=== PATIENT | male | born 1980 | race Caucasian/White ===

== ENCOUNTER 2021-10-29 19:01 | Emergency (ER) | payer OTHER, SELFPAY ==
[2021-10-29 19:03] VITALS: BP 181/85; PULSE 101; RESP 16; TEMP 36.8; O2SAT 98
[2021-10-29] MEDS: DACRIOSE EYE IRRIGATION 118 ML BOTTLE (19:20)
--- NOTE | 2021-10-29 19:21 | ED.EYEPROB ---
HPI - Eye Problem General Chief complaint: Eye Problems Stated complaint: eye injury Time Seen by Provider: 10/29/21 19:09 Source: patient History of Present Illness HPI Narrative: Patient was unscrewing a bolt when it flew out and struck him in his left eye he put an eye patch in the ER for evaluation. He does report a friend looked at it initially thought something was in the. Patient reports he feels some things in the any see a spot in his left visual field. Reports pain to his left feels like there is something in there. Patient reports prior history of Lasix denies contact lens use Related Data Allergies Allergy/AdvReac Type Severity Reaction Status Date / Time No Known Allergies Allergy Unknown Verified 10/29/21 19:02 Review of Systems Review of Systems: CONSTITUTIONAL: Denies fever, chills, or sweats. EYES: Denies visual changes, redness, or discharge. ENT: Denies rhinorrhea, congestion, sore throat, or otalgia. CARDIOVASCULAR: Denies chest pain, palpitations, or edema. RESPIRATORY: Denies cough or dyspnea. GASTROINTESTINAL: Denies abdominal pain, nausea, vomiting, or diarrhea. GENITOURINARY: Denies dysuria or hematuria. SKIN: Denies rash or itching. MUSCULOSKELETAL: Denies back pain, joint pain, or myalgia. NEUROLOGIC: Denies headache, numbness, dizziness, or weakness. PSYCHIATRIC: Denies anxiety or depression. All systems reviewed & are unremarkable except as noted in HPI and below PMFSH Family History Family History Mother Patient's mother is in good health Father Patient's father is in good health Sibling Patient's sister is in good health Social History Social History Smoking status: Former smoker Alcohol intake: current Exam Narrative: GENERAL: Well-appearing, well-nourished, and in no acute distress. HEAD: Normocephalic, atraumatic. EYES: PERRLA and EOMI. no hyphema or hypopyon there is 2 large areas fluorescein uptake in the superior aspect of his cornea as well as the lateral inferior aspect there is no Hanover sign. Small abrasion noted on the medial aspect of the upper lid and lower eyelids of the L eye ENT: Nares clear, no rhinorrhea or epistaxis. Mucous membranes moist. NECK: Supple. No masses. No JVD EXTREMITIES: Normal range of motion. No edema. SKIN: Warm, dry, no rash. NEURO: No focal deficits. Alert and oriented x3. PSYCH: Normal mood and affect. Course Vital Signs Vital signs: Vital Signs Temperature 36.8 C 10/29/21 19:03 Pulse Rate 101 H 10/29/21 19:03 Respiratory Rate 16 10/29/21 19:03 Blood Pressure 181/85 H 10/29/21 19:03 Pulse Oximetry 98 10/29/21 19:03 Temperature 36.8 C 10/29/21 19:03 Pulse Rate 101 H 10/29/21 20:32 Respiratory Rate 18 10/29/21 20:32 Blood Pressure 188/100 H 10/29/21 20:32 Pulse Oximetry 98 10/29/21 20:32 MDM - Eye Problem MDM Narrative Medical decision making narrative: H&P as above, vss, pt looks clinically well, exam with multiple corneal abrasions, labs/img considered, symptomatic relief available as needed, on reevaluation pt continues to looks clinically well. Suspect corneal abrasion, dns, ulcer, open globe, retinal detachment. however given is blurry vision he was transferred to [facility] ER for ophthalmology evaluation. Case discussed Dr. Franklin ophthomology as [facility]. Discharge Plan Discharge Clinical Impression: Blurred vision Corneal abrasion Qualifiers: Encounter type: initial encounter Laterality: left Qualified Code(s): S05.02XA - Injury of conjunctiva and corneal abrasion without foreign body, left eye, initial encounter Patient Disposition: Acute Care Hospital Condition: Improved Additional Instructions: Please return if your symptoms worsen or fail to improve. If you develop a fever, can not eat/drink anything or if you have any other concerns. Please follow-up with an eye doctor next
[2021-10-29 20:32] VITALS: BP 188/100; PULSE 101; RESP 18; O2SAT 98
--- NOTE | 2021-10-29 20:32 | PC.NURSE ---
Pt transferred to [facility] ER for opthamology. Refused ambulance transport and will go by personal vehicle with .
[2021-10-29] MEDS: KETOROLAC 30 MG/ML VIAL (*BKC) IM (20:39)
[2021-10-29] MEDS: ACETAMINOPHEN 500 MG TABLET 1000 MG PO (20:39)
== END 2021-10-29 20:43 | disposition short-term general hospital (02) ==
PROVIDERS: Emergency Provider Emergency Medicine; PCP Physician Assistant
DX: S05.02XA Injury of conjunctiva and corneal abrasion without foreign body, left eye, initial encounter (principal); Z87.891 Personal history of nicotine dependence; W22.8XXA Striking against or struck by other objects, initial encounter
CPT/HCPCS: 96372; 99283; A9270; J1885

== ENCOUNTER 2024-08-17 13:06 | Outpatient (CLI) | payer OTHER, SELFPAY ==
--- NOTE | ~2024-08-17 | CT_ITS ---
CT of the Abdomen and Pelvis: Indication: Hematuria Technique: 2.5 mm axial scans were obtained through the abdomen and pelvis prior to and following in travenous administration of 130 cc of Omnipaque 350. Dose reduction technique was used on this scan b y utilizing automated exposure control and iterative reconstruction technique. The dose-length produc t (DLP) was 1769.40 mGy-cm. Findings: Scans through the lung bases Bibasilar scarring or postoperative change.. The liver, spleen, pancreas, gallbladder, and adrenal glands are within normal limits. No evidence o f aortic aneurysm. No lymphadenopathy. 5 mm stone present in the proximal left ureter, without hydronephrosis. Additional punctate nonobstru cting left renal stone. No right renal or right ureteral stone. No right hydronephrosis. No bowel obstruction or bowel wall thickening. There is no evidence to suggest acute appendicitis. Images through the pelvis were performed. Urinary bladder unremarkable. No pelvic mass seen. No ascit es. Impression: 5 mm proximal left ureteral stone, without hydronephrosis. Additional punctate nonobstructing left renal stone. Reviewed, dictated and finalized at location . Impression: 5 mm proximal left ureteral stone, without hydronephrosis. Additional punctate nonobstructing left renal stone.
[2024-08-17 13:37] LABS: Estimated Glomerular Filt Rate > 60
== END 2024-08-17 13:07 | disposition home or self-care (01) ==
PROVIDERS: PCP Physician Assistant; Visit Provider Physician Assistant
DX: N20.0 Calculus of kidney (principal); R31.0 Gross hematuria
CPT/HCPCS: 74178; Q9967

== ENCOUNTER 2024-10-16 11:21 | Outpatient (CLI) | payer OTHER, SELFPAY ==
--- OUTSIDE RECORDS SUMMARY | 2024-10-16 11:27 | XMS_ITS | Clinical Summary ---
Author Organization [facility] Address [address] [place] [address] Care Team Providers Care Tariff Publishing Agent Name Role Phone Neida Vyas Primary Care Pr ovider Source Comments [facility],non-owned Affiliates and Associated Physician Practices is amultiple site organization consisting of ambulatory clinics and hospital sitesin [place], [place], [place] and [place]. This disclosure is being madepursuant to the Care Everywhere program and may not contain all information available regarding this patient. Last updated 18.[facility] Easy Pairings Allergies No known active allergies Medications * Be aware that medications may not be up to date on this document. Alwaysverify current medications with the patient. losartan (COZAAR) 50 MG tablet losartan 50 mg tablet TAKE 1 TABLET BY MOUTH EVERY DAY Active albuterol HFA (PROVENTIL; VENTOLIN; PROAIR) 108 (90 Base) MCG/ACT inhaler albuterol sulfate HFA 90 mcg/actuation aerosol inhaler Active chorionic gonadotropin (PREGNYL) injection Pregnyl 10,000 unit intramuscular solution Active LORazepam (ATIVAN) 1 MG tablet lorazepam 1 mg tablet TAKE 0.5 (ONE-HALF) TABLET BY MOUTH TWICE A DAY NEEDED Active meclizine (ANTIVERT) 25 MG tablet meclizine 25 mg tablet Active methIMAzole (TAPAZOLE) 5 MG tablet methimazole 5 mg tablet TAKE 1 TABLET BY MOUTH TWICE A DAY Active metoprolol succinate XL 24hr (TOPROL XL) 25 MG tablet metoprolol succinate ER 25 mg tablet,extended release 24 hr TAKE 1 TABLET BY MOUTH EVERY DAY Active omeprazole (PRILOSEC) 40 MG capsule omeprazole 40 mg capsule,delayed release TAKE ONE CAPSULE BY MOUTH ONCE DAILY IN THE MORNING Active valACYclovir (VALTREX) 500 MG tablet valacyclovir 500 mg tablet TAKE 1 TABLET BY MOUTH EVERY DAY Active Active Problems Problem Noted Date Diagnosed Date Hyperthyroidism 09/13/2021 Long-term current use of testosterone replacemen t therapy 07/11/2021 Benign essential hypertension 07/10/2021 Gastroesophageal reflux disease 07/10/2021 Ulcerative colitis 12/19/2017 Overview (11/07/2021): IBD History: Diagnosis: Ulcerative colitis Year of Diagnosis: 2013 Year Symptoms Began: 2013 Phenotype: n/a Distribution: medrano-colon Previously Failed Treatments: 5-ASA, steroid-dependent, sulfasalazine Current Treatment: tofacitinib (05/15/18-present) Complications: ANCA positive vasculitis Surgeries (Date, type): None Endoscopies (Date, findings, path): Colonoscopy 05/15/18 - Calderon 3 colitis through splenic flexure, Calderon 1 colitis right colon, Calderon 0 in rectum. Imaging: None pertinent Extraintestinal manifestations: None Perianal disease: None Last Assessment & Plan: Appears to be doing well on tofacitinib with significant improvement in symptoms. -Will plan for flex sig to assess disease response to current therapy -Continue tofacitinib at present dose -Will verify lipid panel results Added automatically from request for surgery [id number] Pain in joint of right shoulder 07/01/2015 Granulomatosis with polyangiitis 12/17/2014 Family History Medical History Relation Name Comments Glaucoma Neg Hx Macular Degeneration Neg Hx Social History Tobacco Use Types Packs/Day Years Used Date Smoking Tobacco: Never Smokeless Tobacco: Never Alcohol Use Standard Drinks/Week Comments Yes 0 (1 standard drink = 0.6 oz pur e alcohol) Occasional, <1/wk Sex and Gender Information Value Date Recorded Sex Assigned at Not on file Legal Sex Male 12:24 PM [employer] Gender Identity Not on file Sexual Orientation Not on file Last Filed Vital Signs Vital Sign Reading Time Taken Comments Blood Pressure 148/99 10/29/2021 11:50 PM CDT Pulse 94 10/29/2021 11:50 PM CDT Temperature 36.7 C (98 F) 10/29/2021 11:50 PM CDT Respiratory Rate 16 10/29/2021 11:50 PM CDT Oxygen Saturation 100% 10/29/2021 11:50 PM CDT Inhaled Oxygen Concentration - - Weight 86.2 kg (190 lb) 10/29/2021 9:27 PM CDT Height 172.7 cm (5' 8 ) 10/29/2021 9:27 PM CDT Body Mass Index 28.89 10/29/2021 9:27 PM CDT Plan of Treatment Health Maintenance Due Date Last Done Comments LIPID TESTING 1980 HIV SCREENING 1995 HEPATITIS C SCREENING 03/12/1998 DTAP/TDAP/TD VACCINES (1 - Tdap) 1999 HEPATITIS B VACCINE (1 of 3 - 19+ 3-dose series) 1999 SCREENING FOR DIABETES 11/13/2021 COVID-19 VACCINE (1 - 2023-2 5 season) 2024 DEPRESSION SCREENING 06/10/2024 INFLUENZA VACCINE (Season Ended) 2025 04/08/2017, 05/29/2016 ZOSTER VACCINE (1 of 2) 2030 HIB VACCINE Aged Out No longer eligi ble based on patient's age to complete this topic HPV VACCINE Aged Out No longer eligi ble based on patient's age to complete this topic MENINGOCOCCAL (Group B) VACCINE SHARED DECISION-MAKING Aged Out No longer eligible based on patient's age to complete this topic MENINGOCOCCAL GROUPS A/C/Y/W VACCINE Aged Out No longer eligible b ased on patient's age to complete this topic PNEUMOCOCCAL VACCINE Aged Out No long er eligible based on patient's age to complete this topic Care Teams Tariff Publishing Agent Relationship Specialty Start Date End Date Neida Vyas PA [address] [place] [address] PCP - General Physician Control Systems Designer 10/29/21
--- OUTSIDE RECORDS SUMMARY | 2024-10-16 11:27 | XMS_ITS | Data Portability ---
Author Organization [place] - [facility] [employer], Main Office Address [address] [place] [address] Assessment No assessment recorded. Plan of Treatment Reminders Order Date Submit Date Provider Last Modified By Organization Details Last Modified Time Details Appointments None recorded. Lab lipid panel, serum [address] - Outpatient Lab, [address] [place], [address], 3 12:10:19 CBC w/ auto diff 2022 023 [facility] - Outpatient Lab, [address] [place], [address], 3 12:14:21 CMP, serum or plasma [address] - Outpatient Lab, [address] [place], [address], 3 12:10:10 T4, free, serum 2022 023 [facility] ([facility] Sched[facility]), [address] [place], [address], 3 12:38:20 TSH, serum or plasma 2022 023 [facility] ([facility] Sched[facility]), [address] [place], [address], 3 12:52:38 T4, free, serum 2022 023 [facility] ([facility] Sched[facility]), [address] [place], [address], 3 16:12:09 TSH, serum or plasma 2022 023 [facility] ([facility] Sched[facility]), [address] [place], [address], 3 16:39:18 T3, free, serum or plasma 2022 023 [facility] ([facility] Sched[facility]), [address] [place], [address], 3 16:12:25 tsi (thyroid-st imulating immunoglobu izaiah), serum 2022 023 [facility] ([facility] Sched[facility]), [address] [place], [address], 3 07:12:16 CMP, serum or plasma 2022 023 [facility] ([facility] Sched[facility]), [address] [place], [address], 3 16:02:10 thyroid peroxidase (tpo) Ab, serum 2022 023 [facility] ([facility] Scheduling), [address] [place], [address], 3 10:12:49 TSH + free T4, serum 2022 023 [email or web address] [facility] - Outpatient Lab, [address] [place], [address], 3 08:39:06 T3, free, serum or plasma 2022 023 [email or web address] [facility] - Outpatient Lab, [address] [place], [address], 3 08:43:08 tsi (thyroid-st imulating immunoglobu izaiah), serum [address] Outpatient Lab, [address] [place], [address], 3 12:19:04 thyroid peroxidase (tpo) Ab, serum [address] Outpatient Lab, [address] [place], [address], 3 12:19:12 thyroglobul in Ab, serum 2022 023 [facility] Outpatient Lab, [address] [place], [address], 3 10:47:01 urinalysis, complete [address] Outpatient Lab, [address] [place], [address], 3 17:31:08 CMP, serum or plasma [address] Outpatient Lab, [address] [place], [address], 3 17:31:22 lipid panel, serum [address] Outpatient Lab, [address] [place], [address], 3 17:31:30 CBC w/ auto diff [address] Outpatient Lab, [address] [place], [address], 3 17:30:56 PSA, serum or plasma [address] Outpatient Lab, [address] [place], [address], 3 17:31:56 HbA1c (hemoglobin A1c), blood 2022 023 [email or web address] [facility] - Outpatient Lab, [address] [place], [address], 3 17:31:41 Referral None recorded. Procedures None recorded. Surgeries None recorded. Imaging CT, abdomen + pelvis, w/ contrast 2022 023 [facility] (Imaging), [address] [place], [address], 3 10:12:43 Medication Orders methimazole 5 mg tablet 2022 023 [facility] [facility], [address] [place], [address], 3 09:36:08 methimazole 10 mg tablet 2022 023 [place] [address] [facility] [address] [facility], [address] [place], [address], 3 09:17:54 loratadine 10 mg tablet 2022 023 [facility] [address] [facility], [address] [place], [address], 3 11:04:02 Patient TargetsNo targets recorded. Patient InstructionsNo instructions recorded. Reason for Referral None Reported. Results Created Date Observation Date Name Description Value Unit Range Abnormal Flag Note LastModifiedBy Organization Detail LastModifiedTime 01/15/2001/14/2023 COMPR EHENS INEZ METAB OLIC PANEL sodium 139 mmol/ L 137-14 5 Not Available [facility] (Lab) [address] [place], [address], 01/14/2023 16:02:10 01/15/20 23 01/14/2023 COMPR EHENS INEZ METAB OLIC PANEL potassium 3.8 mmol/ L 3.5-5. 1 Not Available [facility] (Lab) [address] [place], [address], 01/14/2023 16:02:10 01/15/20 23 01/14/2023 COMPR EHENS INEZ METAB OLIC PANEL chloride 106 mmol/ L 98-107 Not Available [facility] (Lab) [address] [place], [address], 01/14/2023 16:02:10 01/15/20 23 01/14/2023 COMPR EHENS INEZ METAB OLIC PANEL carbon dioxide 25 mmol/ L 22-30 Not Available [facility] (Lab) [address] [place], [address], 01/14/2023 16:02:10 01/15/20 23 01/14/2023 COMPR EHENS INEZ METAB OLIC PANEL anion gap 11.8 mmol/ L 14-22 low Not Available [facility] (Lab) [address] [place], [address], 01/14/2023 16:02:10 01/15/20 23 01/14/2023 COMPR EHENS INEZ METAB OLIC PANEL glucose 101 mg/dL 70-99 high Not Available [facility] (Lab) [address] [place], [address], 01/14/2023 16:02:10 01/15/20 23 01/14/2023 COMPR EHENS INEZ METAB OLIC PANEL BUN 15 mg/dL 8-19 Not Available [facility] (Lab) [address] [place], [address], 01/14/2023 16:02:10 01/15/20 23 01/14/2023 COMPR EHENS INEZ METAB OLIC PANEL creatinine 0.78 mg/dL 0.66-1 .25 Not Available [facility] (Lab) [address] [place], [address], 01/14/2023 16:02:10 01/15/20 23 01/14/2023 COMPR EHENS INEZ METAB OLIC PANEL GFR >60 Refer ence Range : Matador ge GFR Healt hy Adult : >60 mL/mi n/1.7 3 m2 Chron ic Kidne y Disea se: 15-60 mL/mi n/1.7 3 m2 Kidne y Failu re: <15/m L/min /1.73 m2 www.n iddk. nih.g ov The MDRD study equat ion has not been valid ated in child handy <18 years of age; pregn ant women ; the elder ly >85 years of age; or in some racia l or ethni c subgr oups, such as Hispa nics. Outsi de the valid ated jayy eters , estim ated GFR is less accur ate, requi ring clini lucila judgm ent on a case- by-ca se basis . Clini lucila inter preta tion for other races and ages must be made by the clini marlo. The MDRD study equat ion has not been valid ated for the evalu ation of serum creat inine relat ed to nutri bev l statu s or medic ation usage . For perso ns <18 years of age, a pedia tric GFR calcu lator is avail able on the [employer] websi te: https ://jl suggs.simba lindsay.des roberts/pr ofess ional s/kdo qi/gf r_cal culat or Not Available [facility] (Lab) [address] [place], [address], 01/14/2023 16:02:10 01/15/20 23 01/14/2023 COMPR EHENS INEZ METAB OLIC PANEL alkaline phosphatase 143 U/L 38-126 high Not Available [facility] (Lab) [address] [place], [address], 01/14/2023 16:02:10 01/15/20 23 01/14/2023 COMPR EHENS INEZ METAB OLIC PANEL alanine aminotransfe rase 32 U/L 0-50 Not Available [facility] (Lab) [address] [place], [address], 01/14/2023 16:02:10 01/15/20 23 01/14/2023 COMPR EHENS INEZ METAB OLIC PANEL aspartate aminotransfe rase 32 U/L 15-46 Not Available [facility] (Lab) [address] [place], [address], 01/14/2023 16:02:10 01/15/20 23 01/14/2023 COMPR EHENS INEZ METAB OLIC PANEL bilirubin, total 0.30 mg/dL 0.20-1 .30 Not Available [facility] (Lab) [address] [place], [address], 01/14/2023 16:02:10 01/15/20 23 01/14/2023 COMPR EHENS INEZ METAB OLIC PANEL calcium 9.2 mg/dL 8.4-10 .2 Not Available [facility] (Lab) [address] [place], [address], 01/14/2023 16:02:10 01/15/20 23 01/14/2023 COMPR EHENS INEZ METAB OLIC PANEL total protein 7.6 g/dL 6.3-8. 2 Not Available [facility] (Lab) [address] [place], [address], 01/14/2023 16:02:10 01/15/20 23 01/14/2023 COMPR EHENS INEZ METAB OLIC PANEL albumin 4.5 g/dL 3.4-5. 0 Not Available [facility] (Lab) [address] [place], [address], 01/14/2023 16:02:10 01/15/20 23 01/14/2023 COMPR EHENS INEZ METAB OLIC PANEL globulin 3.1 g/dL 2.6-4. 2 Not Available [facility] (Lab) [address] [place], [address], 01/14/2023 16:02:10 01/15/20 01/14/2023 COMPR EHENS INEZ METAB OLIC PANEL A/G ratio 1.5 ratio 1.0-2. 0 Not Available [facility] (Lab) [address] [place], [address], 01/14/2023 16:02:10 01/15/20 23 01/14/2023 T4 FREE free T4 1.27 NG/dL 0.78-2 .19 Not Available [facility] (Lab) [address] [place], [address], 01/14/2023 16:12:09 01/15/20 23 01/14/2023 T3 FREE free T3 6.2 pg/mL 2.77-5 .27 high Not Available [facility] (Lab) [address] [place], [address], 01/14/2023 16:12:25 01/15/20 23 01/14/2023 TSH thyroid-stim ulating hormone <0.015 uIU/m L 0.465- 4.680 low Not Available [facility] (Lab) [address] [place], [address], 01/14/2023 16:39:18 01/15/20 23 01/15/2023 THYRO ID PEROX IDASE (TPO) AB thyroid peroxidase (tpo) Ab 503 IU/mL 0-34 high Perfo rmed at: [facility] [address] [place] [id number] Lab Direc tor: Scott baker PhD, Phone : [phone] Not Available [facility] (Lab) [address] [place], [address], 01/15/2023 10:12:49 01/15/20 23 01/17/2023 THYRO ID STIM IMMUN OGLOB ULIN thyroid stim immunoglobul in 3.86 IU/L 0.00-0 .55 high Perfo rmed at: [facility] - [facility] Marianna montanez [address] [place] [address] [place] [address] Lab Direc tor: Daniella benítez MD, Phone : [phone] Not Available [facility] (Lab) [address] [place], [address], 01/17/2023 07:12:16 02/22/20 23 02/21/2023 COMPR EHENS INEZ METAB OLIC PANEL sodium 139 mmol/ L 137-14 5 Not Available [facility] (Lab) [address] [place], [address], 02/21/2023 10:58:16 02/22/20 23 02/21/2023 COMPR EHENS INEZ METAB OLIC PANEL potassium 3.9 mmol/ L 3.5-5. 1 Not Available [facility] (Lab) [address] [place], [address], 02/21/2023 10:58:16 02/22/20 23 02/21/2023 COMPR EHENS INEZ METAB OLIC PANEL chloride 105 mmol/ L 98-107 Not Available [facility] (Lab) [address] [place], [address], 02/21/2023 10:58:16 02/22/20 23 02/21/2023 COMPR EHENS INEZ METAB OLIC PANEL carbon dioxide 24 mmol/ L 22-30 Not Available [facility] (Lab) [address] [place], [address], 02/21/2023 10:58:16 02/22/20 23 02/21/2023 COMPR EHENS INEZ METAB OLIC PANEL anion gap 13.9 mmol/ L 14-22 low Not Available [facility] (Lab) [address] [place], [address], 02/21/2023 10:58:16 02/22/20 23 02/21/2023 COMPR EHENS INEZ METAB OLIC PANEL glucose 108 mg/dL 70-99 high Not Available [facility] (Lab) [address] [place], [address], 02/21/2023 10:58:16 02/22/20 23 02/21/2023 COMPR EHENS INEZ METAB OLIC PANEL BUN 18 mg/dL 8-19 Not Available [facility] (Lab) [address] [place], [address], 02/21/2023 10:58:16 02/22/20 23 02/21/2023 COMPR EHENS INEZ METAB OLIC PANEL creatinine 0.96 mg/dL 0.66-1 .25 Not Available [facility] (Lab) [address] [place], [address], 02/21/2023 10:58:16 02/22/20 23 02/21/2023 COMPR EHENS INEZ METAB OLIC PANEL GFR >60 Refer ence Range : Matador ge GFR Healt hy Adult : >60 mL/mi n/1.7 3 m2 Chron ic Kidne y Disea se: 15-60 mL/mi n/1.7 3 m2 Kidne y Failu re: <15/m L/min /1.73 m2 www.n iddk. nih.g ov The MDRD study equat ion has not been valid ated in child handy <18 years of age; pregn ant women ; the elder ly >85 years of age; or in some racia l or ethni c subgr oups, such as [facility] nics. Outsi de the valid ated jayy eters , estim ated GFR is less accur ate, requi ring clini lucila judgm ent on a case- by-ca se basis . Clini lucila inter preta tion for other races and ages must be made by the clini marlo. The MDRD study equat ion has not been valid ated for the evalu ation of serum creat inine relat ed to nutri bev l statu s or medic ation usage . For perso ns <18 years of age, a pedia tric GFR calcu lator is avail able on the F websi te: https ://jl w.simba ogdeny.o rg/pr ofess ional s/kdo qi/gf r_cal culat or Not Available [facility] (Lab) [address] [facility] [place], [address], 02/21/2023 10:58:16 02/22/20 23 02/21/2023 COMPR EHENS INEZ METAB OLIC PANEL alkaline phosphatase 126 U/L 38-126 Not Available [facility] (Lab) [address] [place], [address], 02/21/2023 10:58:16 02/22/20 23 02/21/2023 COMPR EHENS INEZ METAB OLIC PANEL alanine aminotransfe rase 27 U/L 0-50 Not Available [facility] (Lab) [address] [place], [address], 02/21/2023 10:58:16 02/22/20 23 02/21/2023 COMPR EHENS INEZ METAB OLIC PANEL aspartate aminotransfe rase 30 U/L 15-46 Not Available [facility] (Lab) [address] [place], [address], 02/21/2023 10:58:16 02/22/2002/21/2023 COMPR EHENS INEZ METAB OLIC PANEL bilirubin, total 0.80 mg/dL 0.20-1 .30 Not Available [facility] (Lab) [address] [place], [address], 02/21/2023 10:58:16 02/22/2002/21/2023 COMPR EHENS INEZ METAB OLIC PANEL calcium 9.4 mg/dL 8.4-10 .2 Not Available [facility] (Lab) [address] [place], [address], 02/21/2023 10:58:16 02/22/20 23 02/21/2023 COMPR EHENS INEZ METAB OLIC PANEL total protein 8.2 g/dL 6.3-8. 2 Not Available [facility] (Lab) [address] [place], [address], 02/21/2023 10:58:16 02/22/20 23 02/21/2023 COMPR EHENS INEZ METAB OLIC PANEL albumin 4.8 g/dL 3.4-5. 0 Not Available [facility] (Lab) [address] [place], [address], 02/21/2023 10:58:16 02/22/20 23 02/21/2023 COMPR EHENS INEZ METAB OLIC PANEL globulin 3.4 g/dL 2.6-4. 2 Not Available [facility] (Lab) [address] [facility] [place], [address], 02/21/2023 10:58:16 02/22/20 23 02/21/2023 COMPR EHENS INEZ METAB OLIC PANEL A/G ratio 1.4 ratio 1.0-2. 0 Not Available [facility] (Lab) [address] [place], [address], 02/21/2023 10:58:16 02/22/20 23 02/21/2023 T4 FREE free T4 0.60 NG/dL 0.78-2 .19 low Not Available [facility] (Lab) [address] [place], [address], 02/21/2023 11:14:32 02/22/2002/21/2023 T3 FREE free T3 3.0 pg/mL 2.77-5 .27 Not Available [facility] (Lab) [address] [facility] [place], [address], 02/21/2023 11:14:39 02/22/2002/21/2023 TSH thyroid-stim ulating hormone 1.360 uIU/m L 0.465- 4.680 Not Available [facility] (Lab) [address] [place], [address], 02/21/2023 11:28:30 02/22/20 23 02/22/2023 THYRO ID PEROX IDASE (TPO) AB thyroid peroxidase (tpo) Ab 495 IU/mL 0-34 high Perfo rmed at: - [facility] [address] [place] [address] Lab Direc tor: Scott baker PhD, Phone : [phone] Not Available [facility] (Lab) [address] [place], [address], 02/22/2023 09:13:46 02/22/20 23 02/24/2023 THYRO ID STIM IMMUN OGLOB ULIN thyroid stim immunoglobul in 4.09 IU/L 0.00-0 .55 high Perfo rmed at: - [facility] [address] [place] [address] Lab Direc tor: Daniella benítez MD, Phone : [phone] Not Available [facility] (Lab) [address] [place], [address], 02/24/2023 11:08:19 03/13/20 23 03/13/2023 T4 FREE free T4 0.62 NG/dL 0.78-2 .19 low Not Available [facility] (Lab) [address] [place], [address], 03/13/2023 12:38:20 03/13/20 23 03/13/2023 TSH thyroid-stim ulating hormone 4.060 uIU/m L 0.465- 4.680 Not Available [facility] (Lab) [address] [place], [address], 03/13/2023 12:52:37 10/11/1909/11/2022 CT, abdom en + pelvi s, w/ contr ast No observ ation record ed. [email or web address] [facility] [address] [place], [address], 10/10/2022 14:47:29 10/12/19 23 09/11/2022 US, scrot um No observ ation record ed. [email or web address] [facility] [address] [place], [address], 10/11/2022 15:45:23 10/17/19 23 10/16/2022 CT, abdom en + pelvi s, w/ contr ast No observ ation record ed. [email or web address] [facility] [address] [place], [address], 10/17/2022 14:15:07 Result Notes None recorded. Problems Name Problem SNOMED Code Status [place] Date Resolution Date Notes Provider Name and Address Organization Details Recorded Time Benign essential hypertensi on 4348098 Active 2021 Not Available [facility] 3 15:16:57 Abnormal testostero ne 926606377 Active 2021 Not Available [facility] 3 15:16:57 Acute sinusitis 54789286 Active 2021 Not Available [facility] 3 15:16:57 Diabetes mellitus screening Active 2021 [facility] Available [facility] 3 15:16:57 Gastroesop hageal reflux disease 199285154 Active 2021 Not Available [facility] 3 15:16:57 Long-term drug therapy Active 2021 Not Available [facility] 3 15:16:57 Cholestero l screening Active 2021 Not Available [facility] 3 15:16:58 Thyroid function tests abnormal 789686956 Active 2021 Not Available [facility] 3 15:16:58 Hyperthyro idism 63389455 Active 2021 LUIS CARLOS Valera, [place] [employer] [facility] 3 11:26:53 Pain of left knee joint 3374523901569 07 Active 2021 Not Available [facility] 3 15:16:58 Gynecomast ia 0361074 Active 2021 Not Available [facility] 3 15:16:58 Long-term current use of testostero ne replacemen t therapy 4144250996770 1 Active 2021 Not Available [facility] 3 15:16:58 Upper respirator y infection 26953970 Active 2021 Not Available [facility] 3 15:16:58 Kidney stone 86324551 Active 2022 DICKSON Wu [address], [place], [address] , [email or web address] 3 11:01:09 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 Procedures Surgical History Date Name Laterality Status Provider Name and Address Organization Details Recorded Time 01/09/20 22 Knee completed LUIS CARLOS Valera [employer] [facility] 10/09/2022 10:33:14 05/15/20 18 Colonoscopy completed Not Available [facility] 08/09/19 15:14:17 Orthopedic Surgery completed Not Available [facility] 08/08/2022 15:14:17 Lung Surgery completed Not Available [facility] 08/08/2022 15:14:17 Orthopedic Surgery completed Not Available [facility] 08/08/2022 15:14:17 Lung Surgery completed Not Available [facility] 08/08/2022 15:14:17 Orthopedic Surgery completed Not Available [facility] 08/08/2022 15:14:17 Imaging Results Imaging Date Name Status LastModified by Organiz ation Details LastModified Time 09/11/2022 CT, abdomen + pelvis, w/ contrast completed [email or web address] [facility] [address] [place], [address], 10/10/2022 14:47:29 09/11/2022 US, scrotum completed [email or web address] [facility] [address] [place], [address], 10/11/2022 15:45:23 10/16/2022 CT, abdomen + pelvis, w/ contrast completed [email or web address] [facility] [address] [place], [address], 10/17/2022 14:15:07 Procedure Notes None recorded. Medical Equipment None Reported. Allergies No known drug allergies Medications Name Sig Start Date Stop Date Status Note LastModified by Organization Details LastModified Time losartan 50 mg tablet TAKE 1 TABLET BY MOUTH EVERY DAY active Not Available Not Available No t Available prednisone 10 mg tablet 09/12 completed Not Available Not Available Not Available clindamycin HCl 300 mg capsule 09/12 completed Not Available Not Available Not Available azithromyci n 250 mg tablet TAKE 2 TABLETS (500 MG) BY ORAL ROUTE ONCE DAILY FOR 1 DAY THEN 1 TABLET (250 MG) BY ORAL ROUTE ONCE DAILY FOR 4 DAYS 07/10 completed Not Available Not Available Not Available prednisone 20 mg tablet take 3 tabs po daily x 2 days, thentake 2 tabs po daily x 2 days, thentake 1 tab po daily x 2 days, thentake 1/2 tab po daily x 2 days. active Not Available Not Available No t Available Pregnyl 10,000 unit intramuscul ar solution 10/08 completed Not Available Not Available Not Available azathioprin e 50 mg tablet 09/12 completed Not Available Not Available Not Available valacyclovi r 500 mg tablet TAKE 1 TABLET BY MOUTH EVERY DAY active Not Available Not Available No t Available ciprofloxac in 500 mg tablet TAKE 1 TABLET BY MOUTH TWICE A DAY 09/12 completed Not Available Not Available Not Available omeprazole 40 mg capsule,del ayed release TAKE ONE CAPSULE BY MOUTH ONCE DAILY IN THE MORNING active Not Available Not Available No t Available tramadol 50 mg tablet TAKE 1 TO 2 TABLETS BY MOUTH EVERY 4 TO 6 HOURS NEEDED FOR PAIN 10/09 completed Not Available Not Available Not Available ondansetron 8 mg disintegrat ing tablet 10/08 completed Not Available Not Available Not Available ketorolac 10 mg tablet 10/09 completed Not Available Not Available Not Available amoxicillin 875 mg tablet TAKE 1 TABLET BY MOUTH EVERY 12 HOURS 09/12 completed Not Available Not Available Not Available tamsulosin 0.4 mg capsule TAKE 1 CAPSULE BY MOUTH EVERY DAY 09/12 completed Not Available Not Available Not Available meclizine 25 mg tablet TAKE 1 TABLET BY MOUTH THREE TIMES A DAY NEEDED active Not Available Not Available No t Available hydrocodone 7.5 mg-acetamin ophen 325 mg tablet 10/08 completed Not Available Not Available Not Available pantoprazol e 40 mg tablet,dimas yed release 09/12 completed Not Available Not Available Not Available prednisone 50 mg tablet Take 1 tablet every day by oral route for 5 days. active Not Available Not Available No t Available methimazole 5 mg tablet TAKE 2 TABLETS BY MOUTH TWICE A DAY active Not Available Not Available No t Available metoprolol succinate ER 25 mg tablet,exte nded release 24 hr TAKE 1 TABLET BY MOUTH EVERY DAY 2023 active Not Available Not Available Not Avai lable lorazepam 1 mg tablet TAKE HALF A TABLET BY MOUTH TWICE A DAY NEEDED active Not Available Not Available No t Available levofloxaci n 500 mg tablet TAKE 1 TABLET EVERY 24 HOURS BY ORAL ROUTE 09/13 completed Not Available Not Available Not Available methylpredn isolone 4 mg tablets in a dose pack TAKE 6 TABLETS ON DAY 1 DIRECTED ON PACKAGE AND DECREASE BY 1 TAB EACH DAY FOR A TOTAL OF 6 DAYS 10/08 completed Not Available Not Available Not Available albuterol sulfate HFA 90 mcg/actuati on aerosol inhaler Inhale 2 puffs every 4-6 hours by inhalatio n route as needed. 10/08 completed Not Available Not Available Not Available methimazole 10 mg tablet TAKE 2 TABLETS BY MOUTH TWICE A DAY 03/26 completed Not Available Not Available Not Available ondansetron 4 mg disintegrat ing tablet Place 1 tablet every 4-6 hours by transling ual route as needed. active Not Available Not Available No t Available loratadine 10 mg tablet Take 1 tablet every day by oral route. 2022 active Not Available Not Available Not Avai lable naproxen 500 mg tablet TAKE 1 TABLET BY ORAL ROUTE 2 TIMES PER DAY TAKE NEEDED FOR PAIN active Not Available Not Available No t Available amoxicillin 875 mg-potassiu m clavulanate 125 mg tablet TAKE 1 TABLET BY MOUTH EVERY 12 HOURS 10/08 completed Not Available Not Available Not Available tobramycin 0.3 %-dexametha sone 0.1 % eye drops,suspe nsion 07/10 completed Not Available Not Available Not Available Flovent HFA 110 mcg/actuati on aerosol inhaler INHALE 1 PUFF BY MOUTH TWICE A DAY 07/11 completed Not Available Not Available Not Available Xeljanz 10 mg tablet 09/12 completed Not Available Not Available Not Available Dulera 50 mcg-5 mcg/actuati on HFA aerosol inhaler Inhale 2 inhalatio ns twice a day by inhalatio n route. 07/11 completed Not Available Not Available Not Available Vitals Date Recorded Body mass index (BMI) Body height Oxygen saturation Oxygen saturation in Arterial blood by Pulse oximetry Heart rate Body temperature Body weight Systolic blood pressure Diastolic blood pressure Provider Name and Address Organization Details Last Updated DateTime 2 29.3 kg/m2 172.72 cm 98 % 98 % 73 /min 98 [degF] 93564.6 1 g 125 mm[Hg] 85 mm[Hg] Not Available [facility] 3 15:14:44 Date Recorded Body height Body temperature Body mass index (BMI) Body weight Respiratory rate Oxygen saturation Oxygen saturation in Arterial blood by Pulse oximetry Heart rate Systolic blood pressure Diastolic blood pressure Provider Name and Address Organization Details Last Updated DateTime 3 172.72 cm 97.6 [degF] 30 kg/m2 69919.7 g 16 /min 97 % 97 % 101 /min 130 mm[Hg] 82 mm[Hg] LUIS CARLOS Valera [place] - [facility] [place] [employer] 3 10:33:54 Date Recorded Body height Body mass index (BMI) Body weight Body temperature Respiratory rate Heart rate Systolic blood pressure Diastolic blood pressure Provider Name and Address Organization Details Last Updated DateTime 3 172.72 cm 30.5 kg/m2 07631.3 5 g 97.8 [degF] 12 /min 65 /min 159 mm[Hg] 94 mm[Hg] Tamela Olivas RN [facility] [employer] [facility] 3 14:10:06 Date Recorded Body height Body mass index (BMI) Body weight Body temperature Respiratory rate Heart rate Systolic blood pressure Diastolic blood pressure Provider Name and Address Organization Details Last Updated DateTime 3 172.72 cm 32 kg/m2 41786.8 3 g 97.8 [degF] 12 /min 60 /min 159 mm[Hg] 105 mm[Hg] Tamela Olivas RN [facility] [employer] [facility] 3 09:11:36 Date Recorded Body height Body mass index (BMI) Body weight Body temperature Heart rate Oxygen saturation Oxygen saturation in Arterial blood by Pulse oximetry Systolic blood pressure Diastolic blood pressure Provider Name and Address Organization Details Last Updated DateTime 3 172.72 cm 31.6 kg/m2 16265.2 1 g 97.4 [degF] 67 /min 98 % 98 % 142 mm[Hg] 90 mm[Hg] Digna Paul RN [facility] [employer] [facility] 3 09:19:01 Social History Question Answer Notes LastModified by Organization Details LastModified Time Tobacco Smoking Status Former Smoker <1-5 years since last cigarette Not Available [facility] 08/08/2022 15:13:48 What Is Your Level Of Alcohol Consumption? Moderate Beer [id number] Information not available 08/08/2022 What Is Your Level Of Caffeine Consumption? Heavy Coffee And Soda >32oz A Day MIGRATION.030 [id number] Information not available 08/08/2022 How Much Tobacco Do You Chew? None MIGRATION.030 [id number] Information not available 08/08/2022 In The 14 Days Before Symptom Onset, Have You Had Close Contact With A Laboratory-confi rmed COVID-19 While That Case Was Ill? No MIGRATION.030 [id number] Information not available 08/08/2022 In The 14 Days Before Symptom Onset, Have You Had Close Contact With A Person Who Is Under Investigation For COVID-19 While That Person Was Ill? No MIGRATION.0301 [id number] Information not available 08/08/2022 Are You Currently Employed? Yes [email or web address] Information not available 10/08/2022 What Type Of Diet Are You Following? REGULAR MIGRATION.0301 [id number] Information not available 08/08/2022 Which Illicit Or Recreational Drugs Have You Used? None MIGRATION.0301 [id number] Information not available 08/08/2022 Do You Or Have You Ever Used E-cigarettes Or Vape? 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 No MIGRATION.0301 905883 Information not available 08/08/2022 Do You Use Insect Repellent Routinely? No MIGRATION.0301 849114 Information not available 08/08/2022 What Was The Date Of Your Most Recent Tobacco Screening? 09/12/2020 MIGRATION.0301 467503 Information not available 08/08/2022 What Is Your Relationship Status? Single MIGRATION.0301 [id number] Information not available 08/08/2022 Do You Use Your Seat Belt Or Car Seat Routinely? Yes MIGRATION.0301 128731 Information not available 08/08/2022 Do You Have Smoke And Carbon Monoxide Detectors In Your Home? Yes MIGRATION.0301 153153 Information not available 08/08/2022 Do You Or Have You Ever Used Smokeless Tobacco? Former Smokeless Tobacco User MIGRATION.0301 039855 Information not available 08/08/2022 How Much Tobacco Do You Smoke? 1 PPD MIGRATION.0301 750376 Information not available 08/08/2022 Do You Use Any Illicit Or Recreational Drugs? No MIGRATION.0301 355836 Information not available 08/08/2022 Do You Use Sunscreen Routinely? Yes MIGRATION.0301 588016 Information not available 08/08/2022 Have You Recently Traveled Abroad? No MIGRATION.0301 387971 Information not available 08/08/2022 Do You Have Any Dietary Restrictions? No MIGRATION.0301 393384 Information not available 08/08/2022 Do You Or Have You Ever Used Any Other Forms Of Tobacco Or Nicotine? No MIGRATION.0301 905698 Information not available 08/08/2022 Sex: Unknown Functional Status Question Answer Note LastModified by Organizat ion Details LastModified Time What is your exercise level? Moderate [id number] Information not available 08/08/2022 Mental Status None recorded. Family History Relationship Description Onset Age of this Age Resolved Age Notes LastModified by Organization Details LastModified Time Father Malignant neoplastic disease MIGRATION.822 [id number] Not available 08/08/2022 15:14:17 Medical History Condition Response MRSA Y SKIN PROBLEMS Y DIABETES, TYPE N ALLERGIES/HAYFEVER N OTHER # 1 N PARATHYROID DISEASE N ENT N LUNG DISEASE/DISORDER Y SEASONAL ALLERGIES N HEARTBURN / REFLUX Y INSOMNIA N RADIATION / CHEMOTHERAPY N COPD N Other # 2 N HYPERTHYROIDISM Y BLOOD DISEASES N NEUROLOGICAL PROBLEMS N EAR OR HEARING PROBLEMS N HYPOTHYROIDISM N BOWEL PROBLEMS Y DEPRESSION (INCLUDING POST ) Y HAVE YOU BEEN HOSPITALIZED OR SEEN IN [facility] ER IN THE PAST YEAR ? N HEADACHES/MIGRAINES N SEIZURES/EPILEPSY N CHF N PACEMAKER N DIZZINESS N HEART DISEASE/HEART PROBLEMS N AIDS/HIV N FRACTURES N HYPERTENSION Y CARDIAC ARRHYTHMIA Y CANCER: SPECIFY N OBESITY N ANXIETY DISORDER Y BLOOD TRANSFUSION N ANESTHESIA COMPLICATIONS N GERD/NAUSEA Y ANEMIA/BLOOD DISORDER N CHRONIC EAR INFECTIONS N ANEURYSM N HISTORY WITH COMPLICATIONS WITH ANESTHES IA ? N Past Encounters Encounter ID Performer Location Encounter Start Date Encounter Closed Date Diagnosis/Indication Diagnosis SNOMED-CT Code Diagnosis ICD10 Code Diagnosis Note [id number] DICKSON Wu [facility] [place] [address] [place] [address] 09/12/2020 00:00:00 10/05/2020 20:07:09 [id number] Chacho Teague MD [facility] E[facility] [place] [address] [place] [address] 09/22/2020 00:00:00 09/22/2020 15:55:38 [id number] DICKSON Wu [facility] [place] [address] [place] [address] 07/11/2021 00:00:00 08/07/2021 20:27:29 [id number] [facility] [place] [address] [place] [address] 10/02/2021 00:00:00 10/02/2021 20:10:17 [id number] Trenton Gee MD [facility] Internal [facility] [place] [address] [place] [address] 11/09/2021 00:00:00 12/07/2021 21:59:40 [id number] [facility] [place] [address] [place] [address] 11/24/2021 00:00:00 11/24/2021 15:06:27 [id number] [facility] [place] [address] [place] [address] 01/09/2022 00:00:00 01/09/2022 12:03:44 [id number] DICKSON Wu [facility] Internal [facility] [place] [address] [place] [address] 10/09/2022 10:25:52 10/09/2022 11:08:07 Gastroesophageal reflux disease without esophagitis 148497828 K21.9 stable on PPI therapy. Benign ess ential hypertension 0588567 I10 stable on metoprolol and losartan. Kidney stone 62330277 N2 0.0 recent renal stone. screening cmp and UA Mesenteric lymphadenopathy 515468992 I88.0 hx of mesenteric lymphadeno cedric noted on ER scan. This requires f/u scan and lab Cholesterol screening 27 9384740 Z13.220 fasting lipids due. Diabetes m ellitus screening 412803473 Z13.1 screening diabetes due Hyperthyroidism 99570363 E05.90 Pt must f/u with endocrine. this is an ongoing issue. he's not been taking methimazol e in some months. due for TFTs and Thyroid abs. Screening for malignant neoplasm of prostate 641529962 Z12.5 PSA screening due. Seasonal a llergic rhinitis 344352246 J30.2 start loratidine 10mg daily for allergies. [id number] Chantale Savage MD [facility] [place] [address] [place] [address] 01/14/2023 14:01:43 01/14/2023 14:28:06 Hyperthyroidism 49203832 E05.90 Patient was off methimazol e when he had the bloodwork from October- he was reminded of importance to follow up with endocrinol ogist and maintainin g bloodwork as recommende d when treating hyperthyro idism. There is increased mortality and heart disease/mary carmen ne loss in patients with uncontroll ed hyperthyro idism and he was reminded he was advised to get labwork last fall 2021 to assess need to modify therapy further down to euthyroida l range. Patient did lose insurance and did struggle monetarily to maintain his health and aware of the risks of not remaining compliant in his care irregardle ss of resources- there are ways to get medication and labs even in challengin g conditions . He voiced understand ing. In the short interim goal is to get patient back to euthyroida l state with blockade management . PTU and methimazol e are the medication s on the market and due to potential liver failure risk which is very unlikely would recommend methimazol e instead. This is easier to monitor and gauge on outpatient basis. Patient educated on potential side effects such as sore throat, low grade fever or RUQ abdominal pain that might suggest gallstones and advised to contact the clinic with any concerns. Will continue 20 mg twice daily and titrate to lowest dose necessary to maintain euthyroida l state. Will continue on propranolo l for now as he has normal heart rate and was previously tachycardi c per reports. Will plan to repeat labs in 3-4 weeks to continue titration and again if thyroid antibodies are elevated will discuss political analyst curative treatment at return visit. Patient advised to go to ER if he experience s any confusion, fever over 101.0, heart rate over 130 bpm or significan t tremors/wo rsening diarrhea or decline in health. He voiced understand ing. Spent up to 25 minutes preparing to see the patient (eg, review of tests), obtaining and/or reviewing separately obtained history, performing a medically appropriat e examinatio n and evaluation , counseling and educating the patient, ordering medication s, tests, along with documentin g clinical informatio n in the electronic health record, dorysen alexisy interpreti ng results and communicat ing results to the patient. Patient can be followed by PCP - she/he is aware of my resignatio n and last day of March 22. If needed his/her PCP can refer patient to another endocrinol ogist in the area. All questions /concerns answered and refills necessary at visit today. [id number] Chantale Savage MD [facility] [place] [place] [address] [place] [address] 02/25/2023 09:03:44 02/25/2023 09:39:27 Hyperthyroidism 23631408 E05.90 FT4 low range with normalized TSH level- due to risk of overt blockade induced hypothyroi dism will titrate methimazol e down to maintain euthyroida l range- he is aware to drop his methimazol e down to 10 mg twice daily (will likely need to titrate down to 5 mg twice daily after 4-6 weeks)- due to my resignatio n - he is aware to please complete one more set of labs just at Mar 10 and follow up with PCP in early April to continue with titration scale. He will likely only need 5 mg or 5 mg every other day dosing to maintain his overall control. He is aware now of importance of monitoring and need to attain euthyroida l range for bone, cardiac and overall health. Spent up to 15 minutes preparing to see the patient (eg, review of tests), obtaining and/or reviewing separately obtained history, performing a medically appropriat e examinatio n and evaluation , counseling and educating the patient, ordering medication s, tests, along with documentin g clinical informatio n in the electronic health record, independen tly interpreti ng results and communicat ing results to the patient. Patient can be followed by PCP - she/he is aware of my resignatio n and last day of March 22. If needed his/her PCP can refer patient to another endocrinol ogist in the area. All questions /concerns answered and refills necessary at visit today. [id number] DICKSON Wu [facility] Internal [place] [address] [place] [address] 03/26/2023 09:13:33 03/26/2023 09:46:05 Long-term drug therapy [id number] Z79.899 CBC and CMP due. Cholesterol screening 27 8440931 Z13.220 fasting lipids due. Benign ess ential hypertension 0733143 I10 stable on metoprolol and losartan. Gastroesop hageal reflux disease 114618087 K21.9 stable on PPI therapy Hyperthyroidism 35181802 E05.90 pt is scheduled with new Endocrine already and on methimazol e still. Health Concerns Section Related Observation LastModified by Organization Detai ls LastModified Time None Recorded Concern Status LastModified by Organization Details LastModified Time None Recorded Advance Directives Directive None Recorded Payers Encounter Date Sequence Insurance Name Policy Number Policy Smart Covered Member ID Smart Member ID Guarantor Name 10/09/2022 1 [place] [facility] Denny Drake Eud[place] [id number] Denny Drake Eudora 01/14/2023 1 [employer] (MEDICAID HMO) [id number] Denny M Eudora [id number] Denny M Eudora 02/25/2023 1 [employer] (MEDICAID HMO) [id number] Denny M Eudora [id number] Denny M Eudora 03/26/2023 1 [employer] (MEDICAID HMO) [id number] Denny Vidal E[place]ora [id number] Denny M Eudora Notes Date Note Type Note Provider Name and Address Organization Details Recorded Time 10/10/19 23 text/ht ml HypertensionReported bypatient.Duration:has noted for years Onset/Timing:better Alleviating Factors:medication Associated Symptoms:no shortness of breath; no fatigue; no palpitations; no decline in exercise capacity; no snoringHyperthyroidismReported bypatient.Duration:constant Context/Risk:history of hyperthyroidism Modifying Factors:medication Exercisegets exerciseNotes:pt has been off methimazole and no endo f/u since fall 2021. still taking metoprolol ER 25mg daily.Reflux/GERDReported bypatient.Severity:same Duration:present 5 or more years Onset/Timing:gone now Context:non-smoker; no drug/alcohol abuse; no drug alcohol withdrawal; not related to food/drink Alleviating Factors:medication Associated Symptoms:no frequent coughing; no feeling of fullness/mass in throat; no hoarseness; no food getting stuck; no belching/burping; no vomiting; not vomiting blood; no regurgitation; no shortness of breath; no chest pain; no heartburn; no difficulty swallowing; no pain when swallowing; no bad taste; no decreased appetite; no weight loss; no black/tarry stools; no fatigue; no throat pain DICKSON Wu [address] [facility], [place] [address], [place], [address], [facility] [employer] [facility] [employer] [facility] 11/06/2022 21:40:45 01/15/20 23 text/ht ml 42 yo male comes in for follow up in management of hyperthyroidism. last seen in Jan 2022 at that time patient was on methimazole 20 mg twice daily-advised to follow up in Apr 2022 and did not complete labs or follow up with our clinic as advised. He was seen by PCP in October and labwork as noted below-advised to come back due to poor control He stopped taking methimazole for a period of two months and had labwork. He was told to come in to see us. Started back to taking this early November. He felt it was making him anxious- he hasn't had any anxiety since restarting the medication. He is usually only taking 20 mg total a day. He takes all meds in morning and typically forgets to take the evening dose which may be two days a week if that. He has gained back 10 pounds and feeling better overall. Denies any palpitations or anxiety at this time. He has thyroid disease in mother.labs from 10/16/22:TSH <0.015 uIU/mlFT3 of 13.1 pg/mlFT4 of 2.96 ng/dL Chantale Savage MD [address] [facility], [place] [address], [place], [address], [facility] [employer] [facility] [employer] 01/14/2023 16:32:59 02/26/20 23 text/ht ml 42 yo male comes in for follow up in management of hyperthyroidism. last seen in January at that time he was educated on importance of compliance to his medications and labwork. Restarted methimazole 20 mg twice daily. He has gained 10 pounds. He feels better overall. Tolerating therapy better this time. Repeat labs are in ideal range. He denies any headaches, visual changes or chest pain. labs from 02/21/23:TPO 495 IU/mlTSH of 1.360 uIU/mlFT4 of 0.6 ng/dLFT3 of 3.0 pg/mlglucose 108 mgd/LCr normalLFT normal Chantale Savage MD [address], [place] [address], [place], [address], [facility] [employer] [facility] 02/25/2023 09:54:49 03/26/20 23 text/ht ml HypertensionReported bypatient.Duration:has noted for years Onset/Timing:better Alleviating Factors:medication Associated Symptoms:no shortness of breath; no fatigue; no palpitations; no decline in exercise capacity; no snoringHyperthyroidismReported bypatient.Duration:constant Context/Risk:history of hyperthyroidism Modifying Factors:medication Exercisegets exerciseReflux/GERDReported bypatient.Severity:same Duration:present 5 or more years Onset/Timing:gone now Context:non-smoker; no drug/alcohol abuse; no drug alcohol withdrawal; not related to food/drink Alleviating Factors:medication Associated Symptoms:no frequent coughing; no feeling of fullness/mass in throat; no hoarseness; no food getting stuck; no belching/burping; no vomiting; not vomiting blood; no regurgitation; no shortness of breath; no chest pain; no heartburn; no difficulty swallowing; no pain when swallowing; no bad taste; no decreased appetite; no weight loss; no black/tarry stools; no fatigue; no throat pain DICKSON Wu [address], [place] [address], [place], [address], [facility] [employer] [facility] 04/07/2023 21:54:43
--- OUTSIDE RECORDS SUMMARY | 2024-10-16 11:27 | XMS_ITS | Continuity of Care Document ---
Author Organization [facility] Address [address] [place] [address] [address] [place] [address] Phone Care Team Providers Care Interactive Marketing Strategist Name Role Phone Rachel Ni Unavailable Unavailable Procedures Procedure Date Remove Foreign Body From Eye Advance Directives Directive Yes / No Effective Date File Name No Information Encounters Encounter Description Practice Location Reason(s) For Visit Diagnoses Date Provider Providers Copied on Encounter [facility], [address] [place] [address] [address], [place], [place], [id number], [place] tel:[phone] SEC [facility] No Information [phone] Raine Ramos. [address] , [address], [place], [address], [place]. tel:[phone] Family History Family Member Type Diagnosis Age At Onset No Information Payers Payer name Insurance type Covered green party ID Authoriza tion(s) No Information Social History Type Description Quantity Date Captured Comments Sex Male Smoking Status No Information Chief Complaint And Reason For Visit No Information Reason For Referral Reason For Referral No Information History Of Present Illness Encounter Date Complaint History Of Prese nt Illness No Information Functional Status Date Functional Assessmen t No Information Instructions Date Instruction Additional Infor mation No Information Assessments Type Assessment Date No Information Patient Care Teams Name Effective Dates (start - stop) Status Members No Information
--- OUTSIDE RECORDS SUMMARY | 2024-10-16 11:27 | XMS_ITS | CONTINUITY OF CARE DOCUMENT ---
Author Name forddorothy, franciscasheela Address Unknown Organization [facility] Address [address] [facility] [address] [place] [address] Phone [phone] Care Team Providers Care Type Rolling Machine Operator Name Role Phone Christopher YOUNG, Abdiel Unavailable MUMTAZ FISCHER Unavailable MUMTAZ FISHCER Unavailable [phone] PROBLEMS Condition Status Date Provider Notes Chest pain active Jyoti Aguilar INSURANCE PROVIDERS Payer name Policy type / Coverage type [place] [employer] MEDICA[employer] (2) Medicaid [id number] HISTORY OF PROCEDURES Procedure Date Procedure Name Provider Procedure Notes S tatus Regadenoson, 4 units Abdiel White MD completed Cardiolite, 2 units Abdiel White MD completed SPECT Images Abdiel White MD complet ed Stress EKG Abdiel White MD completed
--- OUTSIDE RECORDS SUMMARY | 2024-10-16 11:27 | XMS_ITS | Data Portability ---
[facility] Address [address] [place] [address] Care Team Providers Care Spool Cleaner Name Role Phone MUMTAZ OREILLY Primary Care Provider Unavailab le Assessment No assessment recorded. Plan of Treatment Reminders Order Date Submit Date Provider Last Modified By Organization Details Last Modified Time Details Appointments None recorded. Lab TSH + free T4, serum 2023 024 [facility], [address] [place], [place] [id number] Danyel, [facility] [address], [place], [address], 4 12:38:08 T3, free, serum or plasma 2023 024 [facility], [address] [place], [place] [id number] Danyel, [address], [place], [address], 4 12:38:15 PSA, total, serum or plasma 2023 024 [facility], [address], [place], [address], 4 12:38:14 lipid panel, serum 2023 [facility], [address], [place], [address], 4 12:38:06 CMP, serum or plasma 2023 024 [facility], [address] [place], [place] [id number] Danyel, [address], [place], [address], 4 12:38:09 CBC w/ auto diff 2023 024 [facility], [address], [address], [place], [address], 4 12:38:12 HbA1c (hemoglobi n A1c), blood 2023 024 [facility], [address], [place], [address], 4 12:38:11 TSH + free T4, serum 2023 024 [email or web address] Not available 4 11:11:57 T3, free, serum or plasma 2023 024 [email or web address] Not available 4 11:11:57 CMP, serum or plasma 2023 024 [email or web address] Not available 4 11:11:57 CBC w/ auto diff 2023 024 [email or web address] Not available 4 11:11:58 Referral None recorded. Procedures None recorded. Surgeries None recorded. Imaging CT, urogram 2024 025 [facility], [address], [place], [address], 5 08:52:37 Medication Orders Virtussin AC 10 mg-100 mg/5 mL oral liquid 2023 024 [facility] [id number] [facility], [address], [place], [address], 4 09:25:37 albuterol sulfate HFA 90 mcg/actuat ion aerosol inhaler 2023 024 [facility] [address] [facility], [address], [place], [address], 4 09:24:16 amoxicilli n 875 mg-potassi um clavulanat e 125 mg tablet 2023 024 [email or web address] [address], [place], [address], 5 12:01:41 prednisone 50 mg tablet 2023 024 [facility] [address], [place], [address], 4 09:24:28 Patient TargetsNo targets recorded. Patient Instructions Encounter Date Encounter Id Patient Instructions Last Modified By Organization Details Last Modified Time 04/21/2024 [id number] A healthy lifestyle: care instructions Not available 04/21/2024 09:43:38 08/11/2024 [id number] A healthy lifestyle: care instructions Not available 08/11/2024 12:26:59 Reason for Referral None Reported. Results Created Date Observation Date Name Description Value Unit Range Abnormal Flag Note LastModifiedBy Organization Detail LastModifiedTime 04/21/2004/22/2024 LIPID PANEL W/ CHOL/ HDL RATIO cholesterol, total 275 mg/dL 100-19 9 above high normal Not Available [facility] ([facility]) [address] [place], [address], 04/22/2024 12:38:06 04/21/2004/22/2024 LIPID PANEL W/ CHOL/ HDL RATIO triglyceride s 266 mg/dL 0-149 above high normal Not Available [facility] ([facility]) [address] [place], [address], 04/22/2024 12:38:06 04/21/2004/22/2024 LIPID PANEL W/ CHOL/ HDL RATIO HDL cholesterol 16 mg/dL >39 below low normal Not Available [facility] ([facility]) [address] [place], [address], 04/22/2024 12:38:06 04/21/20 24 04/22/2024 LIPID PANEL W/ CHOL/ HDL RATIO VLDL cholesterol lucila 54 mg/dL 5-40 above high normal Not Available [facility] ([facility]) [address] [place], [address], 04/22/2024 12:38:06 04/21/20 24 04/22/2024 LIPID PANEL W/ CHOL/ HDL RATIO LDL chol calc ([facility]) 205 mg/dL 0-99 above high normal Not Available [facility] ([facility]) [address] [facility], [place], [address], 04/22/2024 12:38:06 04/21/20 24 04/22/2024 LIPID PANEL W/ CHOL/ HDL RATIO LDL calc comment: COMMEN T Consi isael evalu ating for Famil ial Hyper patel stero lemia (FH), if clini jessica indic ated. Not Available [facility] ([facility]) [address] [facility], [place], [address], 04/22/2024 12:38:06 04/21/20 24 04/22/2024 LIPID PANEL W/ CHOL/ HDL RATIO T. chol/HDL ratio 17.2 ratio 0.0-5. 0 above high normal T. Chol/ HDL Ratio Men Women 1/2 Avg.R isk 3.4 3.3 Avg.R isk 5.0 4.4 2X Avg.R isk 9.6 7.1 3X Avg.R isk 23.4 11.0 Not Available [facility] ([facility]) [address] [place], [address], 04/22/2024 12:38:06 04/21/20 24 04/22/2024 TSH+F REE T4 TSH <0.005 uIU/m L 0.450- 4.500 below low normal Not Available [facility] ([facility]) [address] [place], [address], 04/22/2024 12:38:08 04/21/20 24 04/22/2024 TSH+F REE T4 T4,free(dire ct) 1.27 NG/dL 0.82-1 .77 Not Available [facility] ([facility]) [address] [place], [address], 04/22/2024 12:38:08 04/21/20 24 04/22/2024 CMP14 +EGFR glucose 90 mg/dL 70-99 Not Available [facility] ([facility]) [address] [place], [address], 04/22/2024 12:38:09 04/21/2004/22/2024 CMP14 +EGFR BUN 17 mg/dL 6-24 Not Available [facility] ([facility]) [address] [place], [address], 04/22/2024 12:38:09 04/21/20 24 04/22/2024 CMP14 +EGFR creatinine 1.01 mg/dL 0.76-1 .27 Not Available [facility] ([facility]) [address] [place], [address], 04/22/2024 12:38:09 04/21/20 24 04/22/2024 CMP14 +EGFR eGFR 94 mL/mi n/1.7 3 >59 Not Available [facility] ([facility]) [address] [place], [address], 04/22/2024 12:38:09 04/21/2004/22/2024 CMP14 +EGFR BUN/creatini ne ratio 17 9-20 Not Available [facility] ([facility]) [address] [place], [address], 04/22/2024 12:38:09 04/21/20 24 04/22/2024 CMP14 +EGFR sodium 139 mmol/ L 134-14 4 Not Available [facility] ([facility]) [address] [place], [address], 04/22/2024 12:38:09 04/21/20 24 04/22/2024 CMP14 +EGFR potassium 4.6 mmol/ L 3.5-5. 2 Not Available [facility] ([facility]) [address] [facility], [place], [address], 04/22/2024 12:38:09 04/21/20 24 04/22/2024 CMP14 +EGFR chloride 102 mmol/ L 96-106 Not Available [facility] ([facility]) [address] [facility], [place], [address], 04/22/2024 12:38:09 04/21/2004/22/2024 CMP14 +EGFR carbon dioxide, total 21 mmol/ L 20-29 Not Available [facility] ([facility]) [address] [place], [address], 04/22/2024 12:38:09 04/21/20 24 04/22/2024 CMP14 +EGFR calcium 8.8 mg/dL 8.7-10 .2 Not Available [facility] ([facility]) [address] [place], [address], 04/22/2024 12:38:09 04/21/20 24 04/22/2024 CMP14 +EGFR protein, total 7.1 g/dL 6.0-8. 5 Not Available [facility] ([facility]) [address] [place], [address], 04/22/2024 12:38:09 04/21/2004/22/2024 CMP14 +EGFR albumin 4.1 g/dL 4.1-5. 1 Not Available [facility] ([facility]) [address] [place], [address], 04/22/2024 12:38:09 04/21/20 24 04/22/2024 CMP14 +EGFR globulin, total 3.0 g/dL 1.5-4. 5 Not Available [facility] ([facility]) [address] [facility] [place], [address], 04/22/2024 12:38:09 04/21/2004/22/2024 CMP14 +EGFR bilirubin, total 0.4 mg/dL 0.0-1. 2 Not Available [facility] ([facility]) [address] [place], [address], 04/22/2024 12:38:09 04/21/2004/22/2024 CMP14 +EGFR alkaline phosphatase 130 IU/L 44-121 above high normal Not Available [facility] ([facility]) [address] [facility] [place], [address], 04/22/2024 12:38:09 04/21/20 24 04/22/2024 CMP14 +EGFR AST (SGOT) 44 IU/L 0-40 above high normal Not Available [facility] ([facility]) [address] [place], [address], 04/22/2024 12:38:09 04/21/2004/22/2024 CMP14 +EGFR ALT (SGPT) 47 IU/L 0-44 above high normal Not Available [facility] ([facility]) [address] [place], [address], 04/22/2024 12:38:09 04/21/2004/22/2024 HEMOG LOBIN A1C hemoglobin A1C 5.5 % 4.8-5. 6 Predi abete s: 5.7 - 6.4 Diabe alejandro: >6.4 Glyce kevin contr ol for adult s with diabe alejandro: <7.0 Not Available [facility] ([facility]) [address] [place], [address], 04/22/2024 12:38:11 04/21/20 24 04/22/2024 CBC WITH DIFFE RENTI AL/PL ATELE T WBC 8.1 x10e3 /uL 3.4-10 .8 Not Available [facility] ([facility]) [address] [facility], [place], [address], 04/22/2024 12:38:12 04/21/20 24 04/22/2024 CBC WITH DIFFE RENTI AL/PL ATELE T RBC 5.61 x10e6 /uL 4.14-5 .80 Not Available [facility] ([facility]) [address] [facility], [place], [address], 04/22/2024 12:38:12 04/21/20 24 04/22/2024 CBC WITH DIFFE RENTI AL/PL ATELE T hemoglobin 15.8 g/dL 13.0-1 7.7 Not Available [facility] ([facility]) [address] [facility], [place], [address], 04/22/2024 12:38:12 04/21/20 24 04/22/2024 CBC WITH DIFFE RENTI AL/PL ATELE T hematocrit 50.2 % 37.5-5 1.0 Not Available [facility] ([facility]) [address] [facility], [place], [address], 04/22/2024 12:38:12 04/21/20 24 04/22/2024 CBC WITH DIFFE RENTI AL/PL ATELE T MCV 90 fL 79-97 Not Available [facility] ([facility]) [address] [place], [address], 04/22/2024 12:38:12 04/21/20 24 04/22/2024 CBC WITH DIFFE RENTI AL/PL ATELE T MCH 28.2 pg 26.6-3 3.0 Not Available [facility] ([facility]) [address] [place], [address], 04/22/2024 12:38:12 04/21/20 24 04/22/2024 CBC WITH DIFFE RENTI AL/PL ATELE T MCHC 31.5 g/dL 31.5-3 5.7 Not Available [facility] ([facility]) [address] [facility], [place], [address], 04/22/2024 12:38:12 04/21/20 24 04/22/2024 CBC WITH DIFFE RENTI AL/PL ATELE T RDW 14.4 % 11.6-1 5.4 Not Available [facility] ([facility]) [address] [facility], [place], [address], 04/22/2024 12:38:12 04/21/20 24 04/22/2024 CBC WITH DIFFE RENTI AL/PL ATELE T platelets 323 x10e3 /uL 150-45 0 Not Available [facility] ([facility]) [address] [facility], [place], [address], 04/22/2024 12:38:12 04/21/20 24 04/22/2024 CBC WITH DIFFE RENTI AL/PL ATELE T neutrophils 67 % notest ab. Not Available [facility] ([facility]) [address] [facility], [place], [address], 04/22/2024 12:38:12 04/21/20 24 04/22/2024 CBC WITH DIFFE RENTI AL/PL ATELE T lymphs 25 % notest ab. Not Available [facility] ([facility]) [address] [place], [address], 04/22/2024 12:38:12 04/21/20 24 04/22/2024 CBC WITH DIFFE RENTI AL/PL ATELE T monocytes 5 % notest ab. Not Available [facility] ([facility]) [address] [place], [address], 04/22/2024 12:38:12 04/21/20 24 04/22/2024 CBC WITH DIFFE RENTI AL/PL ATELE T eos 2 % notest ab. Not Available [facility] ([facility]) [address] [place], [address], 04/22/2024 12:38:12 04/21/20 24 04/22/2024 CBC WITH DIFFE RENTI AL/PL ATELE T basos 1 % notest ab. Not Available [facility] ([facility]) [address] [facility], [place], [address], 04/22/2024 12:38:12 04/21/20 24 04/22/2024 CBC WITH DIFFE RENTI AL/PL ATELE T neutrophils (absolute) 5.5 x10e3 /uL 1.4-7. 0 Not Available [facility] ([facility]) [address] [facility], [place], [address], 04/22/2024 12:38:12 04/21/20 24 04/22/2024 CBC WITH DIFFE RENTI AL/PL ATELE T lymphs (absolute) 2.0 x10e3 /uL 0.7-3. 1 Not Available [facility] ([facility]) [address] [facility], [place], [address], 04/22/2024 12:38:12 04/21/20 24 04/22/2024 CBC WITH DIFFE RENTI AL/PL ATELE T monocytes(ab solute) 0.4 x10e3 /uL 0.1-0. 9 Not Available [facility] ([facility]) [address] [facility], [place], [address], 04/22/2024 12:38:12 04/21/20 24 04/22/2024 CBC WITH DIFFE RENTI AL/PL ATELE T eos (absolute) 0.1 x10e3 /uL 0.0-0. 4 Not Available [facility] ([facility]) [address] [facility], [place], [address], 04/22/2024 12:38:12 04/21/20 24 04/22/2024 CBC WITH DIFFE RENTI AL/PL ATELE T baso (absolute) 0.0 x10e3 /uL 0.0-0. 2 Not Available [facility] ([facility]) [address] [facility], [place], [address], 04/22/2024 12:38:12 04/21/20 24 04/22/2024 CBC WITH DIFFE RENTI AL/PL ATELE T immature granulocytes 0 % notest ab. Not Available [facility] ([facility]) [address] [facility], [place], [address], 04/22/2024 12:38:12 04/21/20 24 04/22/2024 CBC WITH DIFFE RENTI AL/PL ATELE T immature grans (abs) 0.0 x10e3 /uL 0.0-0. 1 Not Available [facility] ([facility]) [address] [facility], [place], [address], 04/22/2024 12:38:12 04/21/20 24 04/22/2024 PROST ATE-S PECIF IC AG prostate specific Ag 0.2 NG/mL 0.0-4. 0 Tom ECLIA metho dolog y. Accor ding to the Ameri can [employer]rolo g[employer] Ass[employer] iatio n, Serum PSA shoul d decre ase and remai n at undet ectab le level s after radic al prost atect halima. The AUA defin es bioch emica l recur rence as an initi al PSA value 0.2 ng/mL or great er follo wed by a subse quent confi rmato ry PSA value 0.2 ng/mL or great er. Value s obtai maria with diffe rent assay metho ds or kits canno t be used inter copeland eably . Resul ts canno t be inter prete d as absol duane evide nce of the prese nce or absen ce of mel velez se. Not Available [facility] ([facility]) [address] [facility], [place], [address], 04/22/2024 12:38:14 04/21/20 24 04/22/2024 TRIIO DOTHY OCTAVIO E (T3), FREE triiodothyro nine (T3), free 3.6 pg/mL 2.0-4. 4 Not Available [facility] ([facility]) [address] [place], [address], 04/22/2024 12:38:15 08/11/19 25 08/11/2024 TSH+F REE T4 TSH 0.015 uIU/m L 0.450- 4.500 below low normal Not Available [facility] ([facility]) [address] [place], [address], 08/11/2024 11:08:10 08/11/19 25 08/11/2024 TSH+F REE T4 T4,free(dire ct) 1.10 NG/dL 0.82-1 .77 Not Available [facility] ([facility]) [address] [place], [address], 08/11/2024 11:08:10 08/11/19 25 08/11/2024 LIPID PANEL cholesterol, total 175 mg/dL 100-19 9 Not Available [facility] ([facility]) [address] [place], [address], 08/11/2024 11:08:11 08/11/19 25 08/11/2024 LIPID PANEL triglyceride s 131 mg/dL 0-149 Not Available [facility] ([facility]) [address] [place], [address], 08/11/2024 11:08:11 08/11/19 25 08/11/2024 LIPID PANEL HDL cholesterol 35 mg/dL >39 below low normal Not Available [facility] ([facility]) [address] [place], [address], 08/11/2024 11:08:11 08/11/19 25 08/11/2024 LIPID PANEL VLDL cholesterol lucila 24 mg/dL 5-40 Not Available [facility] ([facility]) [address] [place], [address], 08/11/2024 11:08:11 08/11/19 25 08/11/2024 LIPID PANEL LDL chol calc ([facility]) 116 mg/dL 0-99 above high normal Not Available [facility] ([facility]) [address] [place], [address], 08/11/2024 11:08:11 08/11/19 25 08/11/2024 COMP. METAB OLIC PANEL (14) glucose 89 mg/dL 70-99 Not Available [facility] ([facility]) [address] [place], [address], 08/11/2024 11:08:13 08/11/19 25 08/11/2024 COMP. METAB OLIC PANEL (14) BUN 12 mg/dL 6-24 Not Available [facility] ([facility]) [address] [place], [address], 08/11/2024 11:08:13 08/11/19 25 08/11/2024 COMP. METAB OLIC PANEL (14) creatinine 1.05 mg/dL 0.76-1 .27 Not Available [facility] ([facility]) [address] [place], [address], 08/11/2024 11:08:13 08/11/19 25 08/11/2024 COMP. METAB OLIC PANEL (14) eGFR 90 mL/mi n/1.7 3 >59 Not Available [facility] ([facility]) [address] [place], [address], 08/11/2024 11:08:13 08/11/19 25 08/11/2024 COMP. METAB OLIC PANEL (14) BUN/creatini ne ratio 11 - Not Available [facility] ([facility]) [address] [place], [address], 08/11/2024 11:08:13 08/11/19 25 08/11/2024 COMP. METAB OLIC PANEL (14) sodium 142 mmol/ L 134-14 4 Not Available [facility] ([facility]) [address] [facility] [place], [address], 08/11/2024 11:08:13 08/11/19 25 08/11/2024 COMP. METAB OLIC PANEL (14) potassium 4.5 mmol/ L 3.5-5. 2 Not Available [facility] ([facility]) [address] [facility] [place], [address], 08/11/2024 11:08:13 08/11/19 25 08/11/2024 COMP. METAB OLIC PANEL (14) chloride 105 mmol/ L 96-106 Not Available [facility] ([facility]) [address] [facility] [place], [address], 08/11/2024 11:08:13 08/11/19 25 08/11/2024 COMP. METAB OLIC PANEL (14) carbon dioxide, total 24 mmol/ L 20-29 Not Available [facility] ([facility]) [address] [facility] [place], [address], 08/11/2024 11:08:13 08/11/19 25 08/11/2024 COMP. METAB OLIC PANEL (14) calcium 9.3 mg/dL 8.7-10 .2 Not Available [facility] ([facility]) [address] [facility] [place], [address], 08/11/2024 11:08:13 08/11/19 25 08/11/2024 COMP. METAB OLIC PANEL (14) protein, total 7.0 g/dL 6.0-8. 5 Not Available [facility] ([facility]) [address] [facility] [place], [address], 08/11/2024 11:08:13 08/11/19 25 08/11/2024 COMP. METAB OLIC PANEL (14) albumin 4.3 g/dL 4.1-5. 1 Not Available [facility] ([facility]) [address] [facility], [place], [address], 08/11/2024 11:08:13 08/11/19 25 08/11/2024 COMP. METAB OLIC PANEL (14) globulin, total 2.7 g/dL 1.5-4. 5 Not Available [facility] ([facility]) [address] [facility] [place], [address], 08/11/2024 11:08:13 08/11/19 25 08/11/2024 COMP. METAB OLIC PANEL (14) bilirubin, total 0.4 mg/dL 0.0-1. 2 Not Available [facility] ([facility]) [address] [facility], [place], [address], 08/11/2024 11:08:13 08/11/19 25 08/11/2024 COMP. METAB OLIC PANEL (14) alkaline phosphatase 129 IU/L 44-121 above high normal Not Available [facility] ([facility]) [address] [facility], [place], [address], 08/11/2024 11:08:13 08/11/19 25 08/11/2024 COMP. METAB OLIC PANEL (14) AST (SGOT) 31 IU/L 0-40 Not Available [facility] ([facility]) [address] [facility], [place], [address], 08/11/2024 11:08:13 08/11/19 25 08/11/2024 COMP. METAB OLIC PANEL (14) ALT (SGPT) 43 IU/L 0-44 Not Available [facility] ([facility]) [address] [place], [address], 08/11/2024 11:08:13 08/19/19 25 08/17/2024 CT, urogr am No observ ation record ed. [facility] [address], [place], [address], 08/18/2024 12:24:07 Result Notes None recorded. Problems Name Problem SNOMED Code Status Onset Date Resolution Date Notes Provider Name and Address Organization Details Recorded Time Body mass index 30+ - obesity 430193483 Active 2023 Kaye Colbert MA null, [place] - [facility] 4 09:26:51 Hyperthyroidis m 25654578 Active 2023 DICKSON Wu Attn: Accountin g,[address] [facility], [place], [address], [place] [facility] 4 09:44:25 Benign essential hypertension 8239144 Active 2023 DICKSON Wu Attn: Accountin g,[address] [facility], [place], [address], [place] [facility] 4 09:44:26 Gastroesophage al reflux disease without esophagitis 790925798 Active 2023 DICKSON Wu Attn: Accountin g,[address] [facility], [place], [address], [place] [facility] 4 09:44:29 Obesity 879466609 Active 2023 DICKSON Wu Attn: Accountin g,[address] [facility], [place], [address], [place] [facility] 4 09:44:31 Long-term drug therapy Active 2023 DICKSON Wu Attn: Accountin g,[address] [facility], [place], [address], [place] [facility] 4 09:44:33 History of calculus of kidney 853406934 Active 2024 DICKSON Wu Attn: Accountin g,[address] [facility], [place], [address], [place] [facility] 5 12:54:08 Problem Notes None recorded. Procedures Surgical History None recorded. Imaging Results Imaging Date Name Status LastModified by [facility] Details LastModified Time 08/17/2024 CT, urogram completed [facility] Teresita ging [address], [place], [address], 08/18/2024 12:24:07 Procedure Notes None recorded. Medical Equipment None Reported. Allergies No known drug allergies Medications Name Sig Start Date Stop Date Status Note LastModified by Organization Details LastModified Time losartan 50 mg tablet TAKE 1 TABLET BY MOUTH EVERY DAY active Not Available Not Available No t Available azithromyc in 250 mg tablet TAKE 2 TABLETS BY MOUTH TODAY, THEN TAKE 1 TABLET DAILY FOR 4 DAYS DIRECTED 08/11 completed Not Available Not Available Not Available ofloxacin 0.3 % eye drops PUT 3 DROPS IN INTO AFFECTED EYE 3 TIMES A DAY FOR 7 DAYS 04/21 completed Not Available Not Available Not Available prednisone 20 mg tablet TAKE 2 TABLETS BY MOUTH DAILY FOR 7 DAYS, THEN DECREASE TO 1.5 TABLETS DAILY FOR 7 DAYS, THEN DECREASE TO 1 TABLET DAILY FOR 7 DAYS, THEN DECREASE TO 1/2 TABLET DAILY active Not Available Not Available No t Available valacyclov ir 500 mg tablet TAKE 1 TABLET BY MOUTH EVERY DAY active Not Available Not Available No t Available omeprazole 40 mg capsule,de layed release TAKE ONE CAPSULE BY MOUTH ONCE DAILY IN THE MORNING active Not Available Not Available No t Available ketorolac 10 mg tablet TAKE 1 TABLET BY MOUTH EVERY 6 HOURS FOR 3 DAYS, NEEDED FOR PAIN active Not Available Not Available No t Available tamsulosin 0.4 mg capsule TAKE 1 CAPSULE BY MOUTH EVERY DAY active Not Available Not Available No t Available meclizine 25 mg tablet Take by oral route for 10 days. active Not Available Not Available No t Available prednisone 50 mg tablet TAKE 1 TABLET BY MOUTH EVERY DAY FOR 5 DAYS 04/21 completed Not Available Not Available Not Available polymyxin B sulfate 10,000 unit-trime thoprim 1 mg/mL eye drops APPLY 2 DROPS INTO THE EYE 6 TIMES PER DAY FOR 7 DAYS 04/21 completed Not Available Not Available Not Available methimazol e 5 mg tablet TAKE 2 TABLETS BY MOUTH TWICE A DAY 08/11 completed Not Available Not Available Not Available metoprolol succinate ER 25 mg tablet,ext ended release 24 hr TAKE 1 TABLET BY MOUTH EVERY DAY active Not Available Not Available No t Available lorazepam 1 mg tablet Take 1 tablet as needed by oral route for 20 days. active Not Available Not Available No t Available albuterol sulfate HFA 90 mcg/actuat ion aerosol inhaler INHALE 2 PUFFS INTO THE LUNGS EVERY 6 HOURS NEEDED 2023 active for rescue Not Available Not Available Not Available methimazol e 10 mg tablet Take 1 tablet every day by oral route. active Not Available Not Available No t Available loratadine 10 mg tablet TAKE 1 TABLET BY MOUTH EVERY DAY 08/11 completed Not Available Not Available Not Available naproxen 500 mg tablet TAKE 1 TABLET BY ORAL ROUTE 2 TIMES PER DAY TAKE NEEDED FOR PAIN 04/21 completed Not Available Not Available Not Available amoxicilli n 875 mg-potassi um clavulanat e 125 mg tablet TAKE 1 TABLET BY MOUTH EVERY 12 HOURS 08/11 completed Not Available Not Available Not Available Virtussin AC 10 mg-100 mg/5 mL oral liquid Take 10 mL every 6 hours by oral route as needed. 04/21 completed Not Available Not Available Not Available Vitals Date Recorded Body weight Body mass index (BMI) Body height Heart rate Oxygen saturation Oxygen saturation in Arterial blood by Pulse oximetry Systolic blood pressure Diastolic blood pressure Provider Name and Address Organization Details Last Updated DateTime 4 20589.8 4 g 31 kg/m2 172.72 cm 86 /min 98 % 98 % 126 mm[Hg] 84 mm[Hg] Chantale Avila [facility] [facility] 4 16:44:58 Date Recorded Body height Body mass index (BMI) Body weight Respiratory rate Oxygen saturation Oxygen saturation in Arterial blood by Pulse oximetry Heart rate Systolic blood pressure Diastolic blood pressure Provider Name and Address Organization Details Last Updated DateTime 4 172.72 cm 31.5 kg/m2 71814.6 2 g 16 /min 98 % 98 % 61 /min 138 mm[Hg] 82 mm[Hg] Kaye Colbert MA [facility] 4 09:28:37 Date Recorded Systolic blood pressure Diastolic blood pressure Provider Name and Address Organization Details Last Updated DateTime 04/21/2024 132 mm[Hg] 90 mm[Hg] DICKSON Wu Attn: Accounting,[address] [place], [address], [facility] 04/21/2024 09:40:17 Date Recorded Body height Body mass index (BMI) Body weight Oxygen saturation Oxygen saturation in Arterial blood by Pulse oximetry Heart rate Systolic blood pressure Diastolic blood pressure Provider Name and Address Organization Details Last Updated DateTime 172.72 cm 31 kg/m2 37767.8 4 g 97 % 97 % 75 /min 132 mm[Hg] 80 mm[Hg] Kaye Colbert MA [facility] 5 12:05:04 Social History Question Answer Notes LastModified by Organizat ion Details LastModified Time Tobacco Smoking Status Never Smoker Chantale Avila MA null, [facility] 08/12/2023 16:45:50 What Is Your Level Of Alcohol Consumption? Occasional Information not available 04/21/2024 Are You Blind Or Do You Have Difficulty Seeing? No Information n ot available 04/21/2024 What Is Your Level Of Caffeine Consumption? Moderate Soda Information not available 04/21/2024 In The 14 Days Before Symptom Onset, Have You Had Close Contact With A Laboratory-confirm ed COVID-19 While That Case Was Ill? No Information n ot available 04/21/2024 In The 14 Days Before Symptom Onset, Have You Had Close Contact With A Person Who Is Under Investigation For COVID-19 While That Person Was Ill? No Information not available 04/21/2024 Have You Been To An Area Known To Be High Risk For COVID-19? No Information not available 04/21/2024 Are You Currently Employed? Yes Information not available 04/21/2024 Are You Deaf Or Do You Have Serious Difficulty Hearing? No Information not available 04/21/2024 What Type Of Diet Are You Following? REGULAR Information n ot available 04/21/2024 Are There Any Guns Present In Your Home? No Information not available 04/21/2024 What Was The Date Of Your Most Recent Tobacco Screening? 08/04/2024 Information not available 08/11/2024 Do You Use Your Seat Belt Or Car Seat Routinely? Yes Information not available 04/21/2024 Do You Have Smoke And Carbon Monoxide Detectors In Your Home? Yes Information not available 04/21/2024 Do You Use Any Illicit Or Recreational Drugs? No Information not available 04/21/2024 Has Tobacco Cessation Counseling Been Provided? No Information not available 08/12/2023 Do You Or Have You Ever Used Any Other Forms Of Tobacco Or Nicotine? No Information not available 08/12/2023 Sex: Male Functional Status Question Answer Note LastModified by Organization D etails LastModified Time Are you able to care for yourself? Yes Information n ot available 04/21/2024 Mental Status None recorded. Family History Relationship Description Onset Age of this Age Resolved Age Notes LastModified by Organization Details LastModified Time Father No current problems or disability [email or web address] Not available 08/11 16:45:51 Mother No current problems or disability [email or web address] Not available 08/11 16:45:51 Medical History No medical history recorded. Immunizations Vaccine Type Date Status Note Provider Nam e and Address Organization Details Recorded Time pneumococcal polysaccharide PPV23 6 completed [place], [place] - [facility] 04/20/2024 12:12:47 Influenza, split virus, trivalent, PF 6 completed [place]OV[place]A [place], [place] - [facility] 04/20/2024 12:12:47 Past Encounters Encounter ID Performer Location Encounter Start Date Encounter Closed Date Diagnosis/Indication Diagnosis SNOMED-CT Code Diagnosis ICD10 Code Diagnosis Note [id number] Trenton Gee MD [facility] [address] [place] [address] 08/12/2023 16:28:58 08/12/2023 17:24:52 Acute bronchitis 01651193 J20.9 start albuterol hfa, augmentin as directed, and prednisone 50mg daily 5 days Cough 78014143 R05.9 Rx for virtussin AC syrup Hyperthyroidism 41266734 E05.90 hx of hyperthyro id, he has not f/u with Endocrine as needed. He is still taking methimazol e and beta bari. due for updated TFT panel. Long-term drug therapy 709172684 Z79.899 routine cmp and cbc ordered. [id number] Trenton Gee MD [facility] [address] [place] [address] 04/21/2024 09:19:02 04/21/2024 10:18:44 Body mass index 30+ - obesity 286562728 Z68.31 bmi 31.5 Obesity 221610431 E66.9 discussed healthy diet, exercise, controllin g carbohydra alejandro and added sugars in the diet Hyperthyroidism 54830638 E05.90 hx of hyperthyro id, he has not f/u with Endocrine as needed. He is still taking methimazol e and beta bari. due for updated TFT panel. Long-term drug therapy 715429847 Z79.899 routine cmp and cbc ordered. Patient can go to [facility] in [place] to have his labs drawn at their facility Diabetes m ellitus screening 201494285 Z13.1 Cholesterol screening 27 5809813 Z13.220 Screening for malignant neoplasm of prostate 205009955 Z12.5 Annual PSA level is ordered Benign ess ential hypertension 1585741 I10 pt has been without losartan 50mg daily for a few weeks. needs to restart this medication . continue metoprolol ER 25mg daily that he takes for hyperthyro idism rate control. Gastroesop hageal reflux disease without esophagitis 646822976 K21.9 Continue omeprazole 40 mg daily [id number] Trenton Gee MD [facility] [address] [place] [address] 08/11/2024 11:54:01 08/11/2024 13:01:04 Body mass index 30+ - obesity 149261397 Z68.31 bmi 31.5 Obesity 587637829 E66.9 discussed healthy diet, exercise, controllin g carbohydra alejandro and added sugars in the diet Right flank pain 3398932 09 [address]10[address] urogram to evaluate for kidney stones which the patient has a history of Bruce hematuria 52052827 [address] urogram due to bruce hematuria that was present on a few episodes accompanie d with pain. History of calculus of kidney 010490635 Z87.442 As above Health Concerns Section Related Observation LastModified by Organization Detai ls LastModified Time None Recorded Concern Status LastModified by Organization Details LastModified Time None Recorded Advance Directives Directive None Recorded Payers Encounter Date Sequence Insurance Name Policy Number Policy Smart Covered Member ID Smart Member ID Guarantor Name 08/12/2023 1 [facility] [place] Denny Francesnt [id number] Denny Payanavant 08/11/2024 1 [facility] [id number] Denny Drake Ballou [id number] Denny Francesnt Notes Date Note Type Note Provider Name and Address Organization Details Recorded Time 4 text/html Upper Respiratory SymptomsReported bypatient.Location:chest Quality:productive cough;congested;wheezy cough Severity:moderate Duration:symptoms lasting over 2 weeks Context:sick contact Associated Symptoms:yellow sputum;wheezing;fatigue DICKSON Wu Attn: Accounting[address] [place], [address], [facility] 08/13/2023 23:41:20 4 text/html HypertensionReported bypatient.Notes:Patient is supposed to be taking losartan 50 mg daily but he has been out of this for a couple of weeks. He also takes metoprolol succinate ER 25 mg daily which is more so for his hyperthyroidism and heart rate management.Reflux/GERDRep orted bypatient.Notes:Patient continues omeprazole 40 mg daily for acid reflux management with no complaints.ThyroidReporte d bypatient.Notes:Patient is still taking leftover methimazole 10 mg tablets the endocrinology had given him previously. He has not seen them in follow-up. Patient is due for labs DICKSON Wu Attn: Accounting[address] [place], [address], [facility] 05/08/2024 12:45:50 5 text/html Back PainReported bypatient.Quality:sharp;d ull Severity:worsening Duration:acute Aggravating Factors:movement/position ing;twisting;flexing back;extending back Associated Symptoms:no fever; no weak limbs; no numbness of the legs/feet; no tingling; no incontinence; no shortness of breathNotes:last week he had dark urine, dark brown orange tint. the day prior red tint. this was all during time of the right flank pain. 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 Only Right flank pain, movement made it worse. the last two days, the pain has improved some. Sleeping he feels pressure and difficulty getting out of bed at first. DICKSON Wu Attn: Accounting,[address] [place], [address], [facility] 08/14/2024 12:54:24
--- OUTSIDE RECORDS SUMMARY | 2024-10-16 11:27 | XMS_ITS | Encounter Summary ---
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
--- OUTSIDE RECORDS SUMMARY | 2024-10-16 11:27 | XMS_ITS | Referral Summary ---
Author Organization [facility] al Address [address] [place] [address] Care Team Providers Care Gunite Nozzle Operator Name Role Phone Neida Ruggiero Primary Care Pr ovider Allergies No known active allergies Medications pantoprazole DR (PROTONIX) 40 mg EC tablet 11/17/2017 Active losartan (COZAAR) 50 mg tablet 11/25/2017 Active HYDROcodone-acet aminophen (NORCO) 5-325 mg per tabletIndication s:Pain TAKE 1 TABLET EVERY 4 TO 6 HOURS NEEDED. Active valACYclovir (VALTREX) 500 mg tablet 12/21/2017 Active LORazepam (ATIVAN) 1 mg tablet 1 01/16/2018 Active Active Problems Problem Noted Date Diagnosed Date Ulcerative pancolitis without complication 06/23 Overview (06/23/2018): Added automatically from request for surgery [id number] Ulcerative colitis with complication 03/28/2018 Overview (03/28/2018): Added automatically from request for surgery [id number] Ulcerative colitis 12/19/2017 Overview (06/23/2018): IBD History: Diagnosis: Ulcerative colitis Year of [...] pertinent Extraintestinal manifestations: None Perianal disease: None Assessment & Plan (06/23/2018 3:54 PM 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/SOLDERER): Appears to be doing well on tofacitinib with significant improvement in symptoms. -Will plan for flex sig to assess disease response to current therapy -Continue tofacitinib at present dose -Will verify lipid panel results High risk medication use 12/23/2015 Eczema 07/11/2015 Pain in joint of right shoulder 07/01/2015 Granulomatosis with polyangiitis 12/17/2014 Lung mass 11/18/2014 Resolved Problems Problem Noted Date Diagnosed Date Resolved Date Fracture of tibial plateau 01/07/2017 0 06/23/2018 Steroid-induced acne 01/07/2015 019 Immunizations Immunization Administration Dates Next Due Hep B Vaccine 05/06/2017,04/08/2017 Influenza, Quadrivalent, Nimisha l Culture-based MDCK, Preservative Free, Antibiotic Free, Intramuscular 04/08/2017 Influenza, Trivalent, Preservative Free, Intramu scular 05/29/2016 Pneumococcal Conjugate PCV 13 04/08/2017 Pneumococcal Polysaccharide PPV23 05/29/2016 Social History Tobacco Use Types Packs/Day Years Used Date Smoking Tobacco: Former Smokeless Tobacco: Former Alcohol Use Standard Drinks/Week Comments Yes 0 (1 standard drink = 0.6 oz pur e alcohol) socially Sex and Gender Information Value Date Recorded Sex Assigned at Not on file Legal Sex Male 3:42 AM 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/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 Gender Identity Not on file Sexual Orientation Not on file Last Filed Vital Signs Vital Sign Reading Time Taken Comments Blood Pressure 137/92 06/23/2018 9:17 AM 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/SOLDERER Pulse 65 06/23/2018 9:17 AM 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/SOLDERER Temperature 36.7 C (98 F) 06/23/2018 9:17 AM 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/SOLDERER Respiratory Rate 16 05/15/2018 9:57 AM 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/SOLDERER Oxygen Saturation 97% 05/15/2018 9:57 AM 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/SOLDERER Inhaled Oxygen Concentration - - Weight 92.1 kg (203 lb) 06/23/2018 9:17 AM 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/SOLDERER Height 172.7 cm (5' 8 ) 06/23/2018 9:17 AM 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/SOLDERER Body Mass Index 30.87 06/23/2018 9:17 AM 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/SOLDERER Plan of Treatment Not on file Insurance [facility] MEDICAID [facility] Advance Directives For more information, please contact: [phone] * Full Code (Latest Code Status on File) Date Activated Date Inactivated Comments 05/15/2018 8:05 AM 05/15/2018 12:16 PM Care Teams Gunite Nozzle Operator Relationship Specialty Start Date End Date Neida Ruggiero PA PCP - General 08/31/16
--- OUTSIDE RECORDS SUMMARY | 2024-10-16 11:27 | XMS_ITS | Clinical Summary ---
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 0-28.9 in adult BMI 28.0-28.9,adult - (Added by TW Conv) Atrial fibrillation (HCC) Hypertension Peptic ulceration Ulcerative colitis (HCC) GERD (gastroesophageal reflux disease) Arthritis Fracture of tibial plateau 01/07/2017 Family History Medical History Relation Name Comments Arthritis Father Family history of arthritis - (Added by TW Conv) Cancer Other Diabetes Other Heart disease Other Hypertension Other Relation Name Status Comments Father Other Social History Tobacco Use Types Packs/Day Years Used Date Smoking Tobacco: Former Smokeless Tobacco: Former Alcohol Use Standard Drinks/Week Comments Yes 0 (1 standard drink = 0.6 oz pur e alcohol) socially Sex and Gender Information Value Date Recorded Sex Assigned at Not on file Legal Sex Male 3:42 AM DENTAL DETAIL REPRESENTATIVE Gender Identity Not on file Sexual Orientation Not on file Obstetrics History Last Filed Vital Signs Vital Sign Reading Time Taken Comments Blood Pressure 137/92 06/23/2018 9:17 AM DENTAL DETAIL REPRESENTATIVE Pulse 65 06/23/2018 9:17 AM DENTAL DETAIL REPRESENTATIVE Temperature 36.7 C (98 F) 06/23/2018 9:17 AM DENTAL DETAIL REPRESENTATIVE Respiratory Rate 16 05/15/2018 9:57 AM DENTAL DETAIL REPRESENTATIVE Oxygen Saturation 97% 05/15/2018 9:57 AM DENTAL DETAIL REPRESENTATIVE Inhaled Oxygen Concentration - - Weight 92.1 kg (203 lb) 06/23/2018 9:17 AM DENTAL DETAIL REPRESENTATIVE Height 172.7 cm (5' 8 ) 06/23/2018 9:17 AM DENTAL DETAIL REPRESENTATIVE Body Mass Index 30.87 06/23/2018 9:17 AM DENTAL DETAIL REPRESENTATIVE Plan of Treatment Not on file Insurance [facility] MEDICAID [facility] Advance Directives For more information, please contact: [phone] * Full Code (Latest Code Status on File) Date Activated Date Inactivated Comments 05/15/2018 8:05 AM 05/15/2018 12:16 PM Care Teams Receiving Associate Store Relationship Specialty Start Date End Date Neida Ruggiero PA PCP - General 08/31/16
--- NOTE | 2024-10-16 11:34 | ECG_ITS ---
Test Date: 2024-10-16 11:42:45 Measurements Intervals Wright Rate: 67 P: 51 ME: 173 QRS: -6 QRSD: 108 T: 31 QT: 381 QTc: 404 Interpretive Statements SINUS RHYTHM No previous ECG available for comparison Electronically Signed On 10-16-2024 12:18:42 CDT by Argenis Anthony M.D.
[2024-10-16 12:00] LABS: Add Urine Microscopic? YES; Appearance Urine Clear (Clear); Bacteria Urine None Seen /hpf; Bilirubin Urine Negative (Negative); Blood Urine Trace (Negative); Color Urine Yellow (Yellow); Glucose Urine UA Negative (Negative); Ketones Urine Negative (Negative); Leukocyte Esterase Ur Negative LEU/UL (Negative); Nitrate Urine Negative (Negative); Non Pathogenic Casts 0-2; Protein Urine Negative (Negative); RBC Urine 0-2 /hpf (0-2); Specific Grav Ur 1.015 (1.001-1.035); Squamous Epithelial Cell Urine None Seen /hpf (Few); Urobilinogen Urine 0.2 mg/dL (<2.0); WBC Urine 0-5 /hpf (0-3); pH Urine 5.5 (5.0-9.0)
[2024-10-16 12:09] LABS: Prothrombin Time 13.3 Seconds (11.1-14.7)
[2024-10-16 12:10] LABS: Partial Thromboplastin Time 27.3 Seconds (22.3-36.8)
== END 2024-10-16 11:22 | disposition home or self-care (01) ==
LOC: ANHLAB 11:24
PROVIDERS: PCP Physician Assistant; Referring Provider Anesthesiology; Visit Provider Urology
DX: N20.0 Calculus of kidney (principal); I10 Essential (primary) hypertension
CPT/HCPCS: 36415; 81001; 85610; 85730; 93005

== ENCOUNTER 2024-10-19 00:22 | Day surgery (SDC) | payer OTHER, SELFPAY ==
[2024-10-16 09:42] VITALS: BMI 32.0
--- NOTE | 2024-10-16 09:52 | PC.NURSE ---
Report to the Outpatient Waiting Room, entrance under the green pavilion located off [facility], at time _1200_ on date _[id number]_. Planned Procedure Time: _2pm_.? Time changes happen often and if your time is changed the preop area will call you the afternoon before. - You and your visitor will be asked to self-screen and do not enter if you have any COVID symptoms. Please call surgeon if you need to reschedule. - A mask is optional within the hospital at this time. Patients may have clear liquids (water, carbonated beverages, clear teas, apple juice) until 3 hours prior to surgery with a maximum of 20 ounces. - No food from midnight until time of surgery and no smoking, or chewing tobacco (or any form of nicotine). No chewing gum, candy or mints. Take only the following medications with a SIP of water on the morning of surgery: __Metoprolol and Methimazole and if needed Lorazepam.___ DO NOT STOP ANY OF YOUR OTHER PRESCRIPTION MEDICATIONS PRIOR TO SURGERY EXCEPT THE FOLLOWING Hold all vitamins and supplements for 3 days per anesthesiologist. Medications to discontinue per physician Date to take last dose Please no make-up, nail jamaican, hairspray, perfume, deodorant, or body powder the day of surgery.? No jewelry (including any body piercings) or valuables the day of surgery, leave them at home.? Please take a shower or bath the night before, or the morning of, surgery with an antibacterial soap.? Wear comfortable, loose fitting clothing.? - Jewelry must be removed prior to entering the operating room.? Rings and piercings that are not removed may be cut off. - The hospital will not accept responsibility for valuables.? - Please leave all valuables, including medications, at home the day of surgery. If you are going home after surgery, a licensed company truck driver must drive you home.? - NO public transportation without another adult if you receive anesthesia. - We recommend that an adult stay with you for 24 hours following discharge. - We also recommend that you do not drive, make important decision, drink alcoholic beverages, or take any drugs that were not prescribed by your health care provider for at least 24 hours after your discharge time. Follow any additional instructions given to you from your surgeon. Telephone instructions given to __Kory__and asked if any additional questions and then verbalized understanding. Patient advised to call surgeon office or pre surgery nurse liaison [phone] if any additional questions.
--- NOTE | ~2024-10-19 | XR_ITS ---
XR abdomen/kub 1V Ordering provider: Carson Pineda MD History: . ESWL . Comparison: None. FINDINGS: BOWEL: Nonobstructive bowel gas pattern. ORGANOMEGALY: None. SIGNIFICANT PATHOLOGIC CALCIFICATIONS: Calcific shadow is seen in the left paraspinal area. OTHER: No free air is seen under the diaphragm. IMPRESSION: NO ACUTE ABDOMINAL FINDINGS. Possible left kidney stone. Reviewed, dictated and finalized at location A.
--- OUTSIDE RECORDS SUMMARY | 2024-10-19 00:24 | XMS_ITS | Data Portability ---
[facility] Address [address] [place] [address] Care Team Providers [employer] Driver Name Role Phone MUMTAZ OREILLY Primary Care Provider Unavailab le Assessment No assessment recorded. Plan of Treatment Reminders Order Date Submit Date Provider Last Modified By Organization Details Last Modified Time Details Appointments None recorded. Lab TSH + free T4, serum 2023 024 [facility], [address] [place], [place] [address]tristian Danyel, [facility] [address], [place], [address], 4 12:38:08 T3, free, serum or plasma 2023 024 [facility], [address] [place], [place] [address]armani Danyel, [address], [place], [address], 4 12:38:15 PSA, total, serum or plasma 2023 024 [facility], [address], [place], [address], 4 12:38:14 lipid panel, serum 2023 [facility], [address], [place], [address], 4 12:38:06 CMP, serum or plasma 2023 024 [facility], [address] [place], [place] [address]armani Danyel, [address], [place], [address], 4 12:38:09 CBC w/ auto diff [address] [facility], [address], [address], [place], [address], 4 12:38:12 HbA1c (hemoglobi n A1c), blood 2023 024 [facility], [address], [place], [address], 4 12:38:11 TSH + free T4, serum 2023 024 [email or web address] Not available 4 11:11:57 T3, free, serum or plasma 2023 024 Not available 4 11:11:57 CMP, serum or plasma 2023 024 [email or web address] Not available 4 11:11:57 CBC w/ auto diff 2023 024 [email or web address] Not available 4 11:11:58 Referral None recorded. Procedures None recorded. Surgeries None recorded. Imaging CT, urogram 2024 025 [facility], [address], [place], [address], 5 08:52:37 Medication Orders Virtussin AC 10 mg-100 mg/5 mL oral liquid 2023 024 [facility] [facility], [address], [place], [address], 4 09:25:37 albuterol sulfate HFA 90 mcg/actuat ion aerosol inhaler 2023 024 [facility] [facility], [address], [place], [address], 4 09:24:16 amoxicilli n 875 mg-potassi um clavulanat e 125 mg tablet 2023 024 [email or web address] [address], [place], [address], 5 12:01:41 prednisone 50 mg tablet 2023 024 [facility] [address], [place], [address], 4 09:24:28 Patient TargetsNo targets recorded. Patient Instructions Encounter Date Encounter Id Patient Instructions Last Modified By Organization Details Last Modified Time 04/21/2024 [id number] A healthy lifestyle: care instructions Not available 04/21/2024 09:43:38 08/11/2024 [id number] A healthy lifestyle: care instructions Not available 08/11/2024 12:26:59 Reason for Referral None Reported. Results Created Date Observation Date Name Description Value Unit Range Abnormal Flag Note LastModifiedBy Organization Detail LastModifiedTime 04/21/2004/22/2024 LIPID PANEL W/ CHOL/ HDL RATIO cholesterol, total 275 mg/dL 100-19 9 above high normal Not Available [facility] ([facility]) [address] [place], [address], 04/22/2024 12:38:06 04/21/2004/22/2024 LIPID PANEL W/ CHOL/ HDL RATIO triglyceride s 266 mg/dL 0-149 above high normal Not Available [facility] ([facility]) [address] [place], [address], 04/22/2024 12:38:06 04/21/2004/22/2024 LIPID PANEL W/ CHOL/ HDL RATIO HDL cholesterol 16 mg/dL >39 below low normal Not Available [facility] ([facility]) [address] [place], [address], 04/22/2024 12:38:06 04/21/20 24 04/22/2024 LIPID PANEL W/ CHOL/ HDL RATIO VLDL cholesterol lucila 54 mg/dL 5-40 above high normal Not Available [facility] ([facility]) [address] [place], [address], 04/22/2024 12:38:06 04/21/20 24 04/22/2024 LIPID PANEL W/ CHOL/ HDL RATIO LDL chol calc ([facility]) 205 mg/dL 0-99 above high normal Not Available [facility] ([facility]) [address] [facility], [place], [address], 04/22/2024 12:38:06 04/21/20 24 04/22/2024 LIPID PANEL W/ CHOL/ HDL RATIO LDL calc comment: COMMEN T Consi isael evalu ating for Famil ial Hyper patel stero lemia (FH), if clini jessica indic ated. Not Available [facility] ([facility]) [address] [facility], [place], [address], 04/22/2024 12:38:06 04/21/20 24 04/22/2024 LIPID PANEL W/ CHOL/ HDL RATIO T. chol/HDL ratio 17.2 ratio 0.0-5. 0 above high normal T. Chol/ HDL Ratio Men Women 1/2 Avg.R isk 3.4 3.3 Avg.R isk 5.0 4.4 2X Avg.R isk 9.6 7.1 3X Avg.R isk 23.4 11.0 Not Available [facility] ([facility]) [address] [place], [address], 04/22/2024 12:38:06 04/21/20 24 04/22/2024 TSH+F REE T4 TSH <0.005 uIU/m L 0.450- 4.500 below low normal Not Available [facility] ([facility]) [address] [place], [address], 04/22/2024 12:38:08 04/21/20 24 04/22/2024 TSH+F REE T4 T4,free(dire ct) 1.27 NG/dL 0.82-1 .77 Not Available [facility] ([facility]) [address] [place], [address], 04/22/2024 12:38:08 04/21/20 24 04/22/2024 CMP14 +EGFR glucose 90 mg/dL 70-99 Not Available [facility] ([facility]) [address] [place], [address], 04/22/2024 12:38:09 04/21/2004/22/2024 CMP14 +EGFR BUN 17 mg/dL 6-24 Not Available [facility] ([facility]) [address] [place], [address], 04/22/2024 12:38:09 04/21/20 24 04/22/2024 CMP14 +EGFR creatinine 1.01 mg/dL 0.76-1 .27 Not Available [facility] ([facility]) [address] [place], [address], 04/22/2024 12:38:09 04/21/20 24 04/22/2024 CMP14 +EGFR eGFR 94 mL/mi n/1.7 3 >59 Not Available [facility] ([facility]) [address] [place], [address], 04/22/2024 12:38:09 04/21/2004/22/2024 CMP14 +EGFR BUN/creatini ne ratio 17 9-20 Not Available [facility] ([facility]) [address] [place], [address], 04/22/2024 12:38:09 04/21/20 24 04/22/2024 CMP14 +EGFR sodium 139 mmol/ L 134-14 4 Not Available [facility] ([facility]) [address] [place], [address], 04/22/2024 12:38:09 04/21/20 24 04/22/2024 CMP14 +EGFR potassium 4.6 mmol/ L 3.5-5. 2 Not Available [facility] ([facility]) [address] [facility], [place], [address], 04/22/2024 12:38:09 04/21/20 24 04/22/2024 CMP14 +EGFR chloride 102 mmol/ L 96-106 Not Available [facility] ([facility]) [address] [facility], [place], [address], 04/22/2024 12:38:09 04/21/2004/22/2024 CMP14 +EGFR carbon dioxide, total 21 mmol/ L 20-29 Not Available [facility] ([facility]) [address] [place], [address], 04/22/2024 12:38:09 04/21/20 24 04/22/2024 CMP14 +EGFR calcium 8.8 mg/dL 8.7-10 .2 Not Available [facility] ([facility]) [address] [place], [address], 04/22/2024 12:38:09 04/21/20 24 04/22/2024 CMP14 +EGFR protein, total 7.1 g/dL 6.0-8. 5 Not Available [facility] ([facility]) [address] [place], [address], 04/22/2024 12:38:09 04/21/2004/22/2024 CMP14 +EGFR albumin 4.1 g/dL 4.1-5. 1 Not Available [facility] ([facility]) [address] [place], [address], 04/22/2024 12:38:09 04/21/20 24 04/22/2024 CMP14 +EGFR globulin, total 3.0 g/dL 1.5-4. 5 Not Available [facility] ([facility]) [address] [facility] [place], [address], 04/22/2024 12:38:09 04/21/2004/22/2024 CMP14 +EGFR bilirubin, total 0.4 mg/dL 0.0-1. 2 Not Available [facility] ([facility]) [address] [place], [address], 04/22/2024 12:38:09 04/21/2004/22/2024 CMP14 +EGFR alkaline phosphatase 130 IU/L 44-121 above high normal Not Available [facility] ([facility]) [address] [facility] [place] [place], [address], 04/22/2024 12:38:09 04/21/20 24 04/22/2024 CMP14 +EGFR AST (SGOT) 44 IU/L 0-40 above high normal Not Available [facility] ([facility]) [address] [place], [address], 04/22/2024 12:38:09 04/21/2004/22/2024 CMP14 +EGFR ALT (SGPT) 47 IU/L 0-44 above high normal Not Available [facility] ([facility]) [address] [place], [address], 04/22/2024 12:38:09 04/21/2004/22/2024 HEMOG LOBIN A1C hemoglobin A1C 5.5 % 4.8-5. 6 Predi abete s: 5.7 - 6.4 Diabe alejandro: >6.4 Glyce kevin contr ol for adult s with diabe alejandro: <7.0 Not Available [facility] ([facility]) [address] [place], [address], 04/22/2024 12:38:11 04/21/20 24 04/22/2024 CBC WITH DIFFE RENTI AL/PL ATELE T WBC 8.1 x10e3 /uL 3.4-10 .8 Not Available [facility] ([facility]) [address] [facility], [place], [address], 04/22/2024 12:38:12 04/21/20 24 04/22/2024 CBC WITH DIFFE RENTI AL/PL ATELE T RBC 5.61 x10e6 /uL 4.14-5 .80 Not Available [facility] ([facility]) [address] [facility], [place], [address], 04/22/2024 12:38:12 04/21/20 24 04/22/2024 CBC WITH DIFFE RENTI AL/PL ATELE T hemoglobin 15.8 g/dL 13.0-1 7.7 Not Available [facility] ([facility]) [address] [facility], [place], [address], 04/22/2024 12:38:12 04/21/20 24 04/22/2024 CBC WITH DIFFE RENTI AL/PL ATELE T hematocrit 50.2 % 37.5-5 1.0 Not Available [facility] ([facility]) [address] [facility], [place], [address], 04/22/2024 12:38:12 04/21/20 24 04/22/2024 CBC WITH DIFFE RENTI AL/PL ATELE T MCV 90 fL 79-97 Not Available [facility] ([facility]) [address] [place], [address], 04/22/2024 12:38:12 04/21/20 24 04/22/2024 CBC WITH DIFFE RENTI AL/PL ATELE T MCH 28.2 pg 26.6-3 3.0 Not Available [facility] ([facility]) [address] [place], [address], 04/22/2024 12:38:12 04/21/20 24 04/22/2024 CBC WITH DIFFE RENTI AL/PL ATELE T MCHC 31.5 g/dL 31.5-3 5.7 Not Available [facility] ([facility]) [address] [facility], [place], [address], 04/22/2024 12:38:12 04/21/20 24 04/22/2024 CBC WITH DIFFE RENTI AL/PL ATELE T RDW 14.4 % 11.6-1 5.4 Not Available [facility] ([facility]) [address] [facility], [place], [address], 04/22/2024 12:38:12 04/21/20 24 04/22/2024 CBC WITH DIFFE RENTI AL/PL ATELE T platelets 323 x10e3 /uL 150-45 0 Not Available [facility] ([facility]) [address] [facility], [place], [address], 04/22/2024 12:38:12 04/21/20 24 04/22/2024 CBC WITH DIFFE RENTI AL/PL ATELE T neutrophils 67 % notest ab. Not Available [facility] ([facility]) [address] [facility], [place], [address], 04/22/2024 12:38:12 04/21/20 24 04/22/2024 CBC WITH DIFFE RENTI AL/PL ATELE T lymphs 25 % notest ab. Not Available [facility] ([facility]) [address] [place], [address], 04/22/2024 12:38:12 04/21/20 24 04/22/2024 CBC WITH DIFFE RENTI AL/PL ATELE T monocytes 5 % notest ab. Not Available [facility] ([facility]) [address] [place], [address], 04/22/2024 12:38:12 04/21/20 24 04/22/2024 CBC WITH DIFFE RENTI AL/PL ATELE T eos 2 % notest ab. Not Available [facility] ([facility]) [address] [place], [address], 04/22/2024 12:38:12 04/21/20 24 04/22/2024 CBC WITH DIFFE RENTI AL/PL ATELE T basos 1 % notest ab. Not Available [facility] ([facility]) [address] [facility], [place], [address], 04/22/2024 12:38:12 04/21/20 24 04/22/2024 CBC WITH DIFFE RENTI AL/PL ATELE T neutrophils (absolute) 5.5 x10e3 /uL 1.4-7. 0 Not Available [facility] ([facility]) [address] [facility], [place], [address], 04/22/2024 12:38:12 04/21/20 24 04/22/2024 CBC WITH DIFFE RENTI AL/PL ATELE T lymphs (absolute) 2.0 x10e3 /uL 0.7-3. 1 Not Available [facility] ([facility]) [address] [facility], [place], [address], 04/22/2024 12:38:12 04/21/20 24 04/22/2024 CBC WITH DIFFE RENTI AL/PL ATELE T monocytes(ab solute) 0.4 x10e3 /uL 0.1-0. 9 Not Available [facility] ([facility]) [address] [facility], [place], [address], 04/22/2024 12:38:12 04/21/20 24 04/22/2024 CBC WITH DIFFE RENTI AL/PL ATELE T eos (absolute) 0.1 x10e3 /uL 0.0-0. 4 Not Available [facility] ([facility]) [address] [facility], [place], [address], 04/22/2024 12:38:12 04/21/20 24 04/22/2024 CBC WITH DIFFE RENTI AL/PL ATELE T baso (absolute) 0.0 x10e3 /uL 0.0-0. 2 Not Available [facility] ([facility]) [address] [facility], [place], [address], 04/22/2024 12:38:12 04/21/20 24 04/22/2024 CBC WITH DIFFE RENTI AL/PL ATELE T immature granulocytes 0 % notest ab. Not Available [facility] ([facility]) [address] [facility], [place], [address], 04/22/2024 12:38:12 04/21/20 24 04/22/2024 CBC WITH DIFFE RENTI AL/PL ATELE T immature grans (abs) 0.0 x10e3 /uL 0.0-0. 1 Not Available [facility] ([facility]) [address] [facility], [place], [address], 04/22/2024 12:38:12 04/21/20 24 04/22/2024 PROST ATE-S [...] of mel velez se. Not Available [facility] ([facility]) [address] [facility], [place], [address], 04/22/2024 12:38:14 04/21/20 24 04/22/2024 TRIIO DOTHY OCTAVIO E (T3), FREE triiodothyro nine (T3), free 3.6 pg/mL 2.0-4. 4 Not Available [facility] ([facility]) [address] [place], [address], 04/22/2024 12:38:15 08/11/19 25 08/11/2024 TSH+F REE T4 TSH 0.015 uIU/m L 0.450- 4.500 below low normal Not Available [facility] ([facility]) [address] [place], [address], 08/11/2024 11:08:10 08/11/19 25 08/11/2024 TSH+F REE T4 T4,free(dire ct) 1.10 NG/dL 0.82-1 .77 Not Available [facility] ([facility]) [address] [place], [address], 08/11/2024 11:08:10 08/11/19 25 08/11/2024 LIPID PANEL cholesterol, total 175 mg/dL 100-19 9 Not Available [facility] ([facility]) [address] [place], [address], 08/11/2024 11:08:11 08/11/19 25 08/11/2024 LIPID PANEL triglyceride s 131 mg/dL 0-149 Not Available [facility] ([facility]) [address] [place], [address], 08/11/2024 11:08:11 08/11/19 25 08/11/2024 LIPID PANEL HDL cholesterol 35 mg/dL >39 below low normal Not Available [facility] ([facility]) [address] [place], [address], 08/11/2024 11:08:11 08/11/19 25 08/11/2024 LIPID PANEL VLDL cholesterol lucila 24 mg/dL 5-40 Not Available [facility] ([facility]) [address] [place], [address], 08/11/2024 11:08:11 08/11/19 25 08/11/2024 LIPID PANEL LDL chol calc ([facility]) 116 mg/dL 0-99 above high normal Not Available [facility] ([facility]) [address] [place], [address], 08/11/2024 11:08:11 08/11/19 25 08/11/2024 COMP. METAB OLIC PANEL (14) glucose 89 mg/dL 70-99 Not Available [facility] ([facility]) [address] [place], [address], 08/11/2024 11:08:13 08/11/19 25 08/11/2024 COMP. METAB OLIC PANEL (14) BUN 12 mg/dL 6-24 Not Available [facility] ([facility]) [address] [place], [address], 08/11/2024 11:08:13 08/11/19 25 08/11/2024 COMP. METAB OLIC PANEL (14) creatinine 1.05 mg/dL 0.76-1 .27 Not Available [facility] ([facility]) [address] [place], [address], 08/11/2024 11:08:13 08/11/19 25 08/11/2024 COMP. METAB OLIC PANEL (14) eGFR 90 mL/mi n/1.7 3 >59 Not Available [facility] ([facility]) [address] [place], [address], 08/11/2024 11:08:13 08/11/19 25 08/11/2024 COMP. METAB OLIC PANEL (14) BUN/creatini ne ratio 11 - Not Available [facility] ([facility]) [address] [place], [address], 08/11/2024 11:08:13 08/11/19 25 08/11/2024 COMP. METAB OLIC PANEL (14) sodium 142 mmol/ L 134-14 4 Not Available [facility] ([facility]) [address] [facility] [place], [address], 08/11/2024 11:08:13 08/11/19 25 08/11/2024 COMP. METAB OLIC PANEL (14) potassium 4.5 mmol/ L 3.5-5. 2 Not Available [facility] ([facility]) [address] [facility] [place], [address], 08/11/2024 11:08:13 08/11/19 25 08/11/2024 COMP. METAB OLIC PANEL (14) chloride 105 mmol/ L 96-106 Not Available [facility] ([facility]) [address] [facility] [place] [place], [address], 08/11/2024 11:08:13 08/11/19 25 08/11/2024 COMP. METAB OLIC PANEL (14) carbon dioxide, total 24 mmol/ L 20-29 Not Available [facility] ([facility]) [address] [facility] [place] [place], [address], 08/11/2024 11:08:13 08/11/19 25 08/11/2024 COMP. METAB OLIC PANEL (14) calcium 9.3 mg/dL 8.7-10 .2 Not Available [facility] ([facility]) [address] [facility] [place] [place], [address], 08/11/2024 11:08:13 08/11/19 25 08/11/2024 COMP. METAB OLIC PANEL (14) protein, total 7.0 g/dL 6.0-8. 5 Not Available [facility] ([facility]) [address] [facility] [place] [place], [address], 08/11/2024 11:08:13 08/11/19 25 08/11/2024 COMP. METAB OLIC PANEL (14) albumin 4.3 g/dL 4.1-5. 1 Not Available [facility] ([facility]) [address] [facility], [place], [address], 08/11/2024 11:08:13 08/11/19 25 08/11/2024 COMP. METAB OLIC PANEL (14) globulin, total 2.7 g/dL 1.5-4. 5 Not Available [facility] ([facility]) [address] [facility] [place] [place], [address], 08/11/2024 11:08:13 08/11/19 25 08/11/2024 COMP. METAB OLIC PANEL (14) bilirubin, total 0.4 mg/dL 0.0-1. 2 Not Available [facility] ([facility]) [address] [facility], [place], [address], 08/11/2024 11:08:13 08/11/19 25 08/11/2024 COMP. METAB OLIC PANEL (14) alkaline phosphatase 129 IU/L 44-121 above high normal Not Available [facility] ([facility]) [address] [facility], [place], [address], 08/11/2024 11:08:13 08/11/19 25 08/11/2024 COMP. METAB OLIC PANEL (14) AST (SGOT) 31 IU/L 0-40 Not Available [facility] ([facility]) [address] [facility], [place], [address], 08/11/2024 11:08:13 08/11/19 25 08/11/2024 COMP. METAB OLIC PANEL (14) ALT (SGPT) 43 IU/L 0-44 Not Available [facility] ([facility]) [address] [place], [address], 08/11/2024 11:08:13 08/19/19 25 08/17/2024 CT, urogr am No observ ation record ed. [facility] [address], [place], [address], 08/18/2024 12:24:07 Result Notes None recorded. Problems Name Problem SNOMED Code Status Onset Date Resolution Date Notes Provider Name and Address Organization Details Recorded Time Body mass index 30+ - obesity 820127931 Active 2023 Kaye Colbert MA null, [place] - [facility] 4 09:26:51 Hyperthyroidis m 86753174 Active 2023 DICKSON Wu Attn: Accountin g,[address] [facility], [place], [address], [place] [facility] 4 09:44:25 Benign essential hypertension 4436417 Active 2023 DICKSON Wu Attn: Accountin g,[address] [facility], [place], [address], [place] [facility] 4 09:44:26 Gastroesophage al reflux disease without esophagitis 974153358 Active 2023 DICKSON Wu Attn: Accountin g,[address] [facility], [place], [address], [place] [facility] 4 09:44:29 Obesity 876141191 Active 2023 DICKSON Wu Attn: Accountin g,[address] [facility], [place], [address], [place] [facility] 4 09:44:31 Long-term drug therapy Active 2023 DICKSON Wu Attn: Accountin g,[address] [facility], [place], [address], [place] - [facility] 4 09:44:33 History of calculus of kidney 415345289 Active 2024 DICKSON Wu Attn: Accountin g,[address] [facility], [place], [address], [place] - [facility] 5 12:54:08 Problem Notes None recorded. Procedures Surgical History None recorded. Imaging Results Imaging Date Name Status LastModified by [facility] Details LastModified Time 08/17/2024 CT, urogram completed [facility] Teresita ging [address], [place], [address], 08/18/2024 12:24:07 Procedure Notes None recorded. Medical [...] Address Organization Details Last Updated DateTime 4 28931.8 4 g 31 kg/m2 172.72 cm 86 /min 98 % 98 % 126 mm[Hg] 84 mm[Hg] Chantale Avila MA [facility] 4 16:44:58 Date Recorded Body height Body mass index (BMI) Body weight Respiratory rate Oxygen saturation Oxygen saturation in Arterial blood by Pulse oximetry Heart rate Systolic blood pressure Diastolic blood pressure Provider Name and Address Organization Details Last Updated DateTime 4 172.72 cm 31.5 kg/m2 24573.6 2 g 16 /min 98 % 98 % 61 /min 138 mm[Hg] 82 mm[Hg] Kaye Colbert MA [facility] 4 09:28:37 Date Recorded Systolic blood pressure Diastolic blood pressure Provider Name and Address Organization Details Last Updated DateTime 04/21/2024 132 mm[Hg] 90 mm[Hg] DICKSON Wu Attn: Accounting,[address] [place], [address], [facility] 04/21/2024 09:40:17 Date Recorded Body height Body mass index (BMI) Body weight Oxygen saturation Oxygen saturation in Arterial blood by Pulse oximetry Heart rate Systolic blood pressure Diastolic blood pressure Provider Name and Address Organization Details Last Updated DateTime 172.72 cm 31 kg/m2 77599.8 4 g 97 % 97 % 75 /min 132 mm[Hg] 80 mm[Hg] Kaye Colbert MA [facility] 5 12:05:04 Social History Question Answer Notes LastModified by Organizat ion Details LastModified Time Tobacco Smoking Status Never Smoker Chantale Avila MA null, [facility] 08/12/2023 16:45:50 Are You Blind Or Do You Have [...] No Information not available 04/21/2024 Are You Deaf [...] Your Home? Yes Information not available 04/21/2024 Has Tobacco Cessation Counseling Been Provided? No Information not available 08/12/2023 Sex: Male Functional Status Question Answer Note LastModified by Organizat ion Details LastModified Time Do you use any illicit or recreational drugs? No Information not available 04/21/2024 Do you or have you ever used any other forms of tobacco or nicotine? No Information not available 08/12/2023 What is your level of alcohol consumption? Occasional Information not available 04/21/2024 Are you currently employed? Yes Information not available 04/21/2024 Are you able to care for yourself? [...] Recorded Time pneumococcal polysaccharide PPV23 6 completed Kaye Colbert MA null, [place] - [facility] 04/20/2024 12:12:47 Influenza, split virus, trivalent, PF 6 completed GENOVEVA Dang, [place] - [facility] 04/20/2024 12:12:47 Past Encounters Encounter ID Performer Location Encounter Start Date Encounter Closed Date Diagnosis/Indication Diagnosis SNOMED-CT Code Diagnosis ICD10 Code Diagnosis Note [id number] Trenton Gee MD [facility] [address] [place] [address] 08/12/2023 16:28:58 08/12/2023 17:24:52 Acute bronchitis 58324014 J20.9 start albuterol hfa, augmentin as directed, and prednisone 50mg daily 5 days Cough 71165021 R05.9 Rx for virtussin AC syrup Hyperthyroidism 65334624 E05.90 hx of hyperthyro id, he has not f/u with Endocrine as needed. He is still taking methimazol e and beta bari. due for updated TFT panel. Long-term drug therapy 777946537 Z79.899 routine cmp and cbc ordered. [id number] Trenton Gee MD [facility] [address] [place] [address] 04/21/2024 09:19:02 04/21/2024 10:18:44 Body mass index 30+ - obesity 467653735 Z68.31 bmi 31.5 Obesity 634309017 E66.9 discussed healthy diet, exercise, controllin g carbohydra alejandro and added sugars in the diet Hyperthyroidism 12308427 E05.90 hx of hyperthyro id, he has not f/u with Endocrine as needed. He is still taking methimazol e and beta bari. due for updated TFT panel. Long-term drug therapy 215189646 Z79.899 routine cmp and cbc ordered. Patient can go to [facility] in [place] to have his labs drawn at their facility Diabetes m ellitus screening 784414626 Z13.1 Cholesterol screening 27 1555096 Z13.220 Screening for malignant neoplasm of prostate 866852004 Z12.5 Annual PSA level is ordered Benign ess ential hypertension 7805112 I10 pt has been without losartan 50mg daily for a few weeks. needs to restart this medication . continue metoprolol ER 25mg daily that he takes for hyperthyro idism rate control. Gastroesop hageal reflux disease without esophagitis 166270591 K21.9 Continue omeprazole 40 mg daily [id number] Trenton Gee MD [facility] [employer] [address] [place] [address] 08/11/2024 11:54:01 08/11/2024 13:01:04 Body mass index 30+ - obesity 270346544 Z68.31 bmi 31.5 Obesity 232710371 E66.9 discussed healthy diet, exercise, controllin g carbohydra alejandro and added sugars in the diet Right flank pain 2265704 09 [address]10[address] urogram to evaluate for kidney stones which the patient has a history of Bruce hematuria 04190340 [address] urogram due to bruce hematuria that was present on a few episodes accompanie d with pain. History of calculus of kidney [id number] Z87.442 As above Health Concerns Section Related Observation LastModified by Organization Detai ls LastModified Time None Recorded Concern Status LastModified by Organization Details LastModified Time None Recorded Advance Directives Directive None Recorded Payers Encounter Date Sequence Insurance Name Policy Number Policy Smart Covered Member ID Smart Member ID Guarantor Name 08/12/2023 1 [facility] [place] Denny Payanavant [id number] Denny Payanavant 08/11/2024 1 [facility] [id number] Denny Payanavant [id number] Denny Francesnt Notes Date Note Type Note Provider Name and Address Organization Details Recorded Time 4 text/html Upper Respiratory SymptomsReported bypatient.Location:chest Quality:productive cough;congested;wheezy cough Severity:moderate Duration:symptoms lasting over 2 weeks Context:sick contact Associated Symptoms:yellow sputum;wheezing;fatigue DICKSON Wu Attn: [address] [place], [address], [facility] 08/13/2023 23:41:20 4 text/html HypertensionReported bypatient.Notes:Patient is [...] for labs DICKSON Wu Attn: [address] [place], [address], [facility] 05/08/2024 12:45:50 5 text/html Back PainReported bypatient.Quality:sharp;d [...] at first. DICKSON Wu Attn: [address] [place], [address], [facility] 08/14/2024 12:54:24
--- OUTSIDE RECORDS SUMMARY | 2024-10-19 00:24 | XMS_ITS | CONTINUITY OF CARE DOCUMENT ---
Author Name forddorothy, franciscasheela Address Unknown Organization [facility] Address [address] [facility] [address] [facility] [address] [place] [address] Phone [phone] Care Team Providers Care Environmental Marketer Name Role Phone Christopher YOUNG, Abdiel Unavailable [phone] MUMTAZ FISCHER Unavailable MUMTAZ FISCHER Unavailable [phone] PROBLEMS Condition Status Date Provider Notes Chest pain active Jyoti Aguilar INSURANCE PROVIDERS Payer name Policy type / Coverage type [place] red libertarian [place] (2) Medicaid [id number] HISTORY OF PROCEDURES Procedure Date Procedure Name Provider Procedure Notes S tatus Regadenoson, 4 units Abdiel White MD completed Cardiolite, 2 units Abdiel White MD completed SPECT Images Abdiel White MD complet ed Stress EKG Abdiel White MD completed
--- OUTSIDE RECORDS SUMMARY | 2024-10-19 00:24 | XMS_ITS | Encounter Summary ---
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
--- OUTSIDE RECORDS SUMMARY | 2024-10-19 00:24 | XMS_ITS | Referral Summary ---
Author Organization [facility] al Address [address] [place] [address] Care Team Providers Care Card Sorter Name Role Phone Neida Ruggiero Primary Care [...] (06/23/2018): Added automatically from request for surgery [id number] Ulcerative colitis with complication 03/28/2018 Overview (03/28/2018): Added automatically from request for surgery [id number] Ulcerative colitis 12/19/2017 Overview (06/23/2018): IBD History: [...] None Assessment & Plan (06/23/2018 3:54 PM PER ASSESSMENT NURSE): Appears to be doing well on tofacitinib [...] on file Legal Sex Male 3:42 AM PER ASSESSMENT NURSE Gender Identity Not on file Sexual Orientation Not on file Last Filed Vital Signs Vital Sign Reading Time Taken Comments Blood Pressure 137/92 06/23/2018 9:17 AM PER ASSESSMENT NURSE Pulse 65 06/23/2018 9:17 AM PER ASSESSMENT NURSE Temperature 36.7 C (98 F) 06/23/2018 9:17 AM PER ASSESSMENT NURSE Respiratory Rate 16 05/15/2018 9:57 AM PER ASSESSMENT NURSE Oxygen Saturation 97% 05/15/2018 9:57 AM PER ASSESSMENT NURSE Inhaled Oxygen Concentration - - Weight 92.1 kg (203 lb) 06/23/2018 9:17 AM PER ASSESSMENT NURSE Height 172.7 cm (5' 8 ) 06/23/2018 9:17 AM PER ASSESSMENT NURSE Body Mass Index 30.87 06/23/2018 9:17 AM PER ASSESSMENT NURSE Plan of Treatment Not on file Insurance IDPA [facility] MEDICAID [facility] Advance Directives For more information, please contact: [phone] * Full Code (Latest Code Status on File) Date Activated Date Inactivated Comments 05/15/2018 8:05 AM 05/15/2018 12:16 PM Care Teams Card Sorter Relationship Specialty Start Date End Date Neida Ruggiero PA PCP - General 08/31/16
--- OUTSIDE RECORDS SUMMARY | 2024-10-19 00:24 | XMS_ITS | Clinical Summary ---
Author Organization [facility] al Address [address] [place] [address] Care Team Providers Care Circular Saw Filer Name Role Phone Neida Ruggiero Primary Care [...] (06/23/2018): Added automatically from request for surgery [id number] Ulcerative colitis with complication 03/28/2018 Overview (03/28/2018): Added automatically from request for surgery [id number] Ulcerative colitis 12/19/2017 Overview (06/23/2018): IBD History: [...] None Assessment & Plan (06/23/2018 3:54 PM VAUDEVILLE ACTOR): Appears to be doing well on tofacitinib [...] 05/29/2016 Surgical History Surgery Date Site/Laterality Comments [place] THORACOSCOPY W/DX BX OF L ELLA NODULES [...] on file Legal Sex Male 3:42 AM VAUDEVILLE ACTOR Gender Identity Not on file Sexual Orientation Not on file Obstetrics History Last Filed Vital Signs Vital Sign Reading Time Taken Comments Blood Pressure 137/92 06/23/2018 9:17 AM VAUDEVILLE ACTOR Pulse 65 06/23/2018 9:17 AM VAUDEVILLE ACTOR Temperature 36.7 C (98 F) 06/23/2018 9:17 AM VAUDEVILLE ACTOR Respiratory Rate 16 05/15/2018 9:57 AM VAUDEVILLE ACTOR Oxygen Saturation 97% 05/15/2018 9:57 AM VAUDEVILLE ACTOR Inhaled Oxygen Concentration - - Weight 92.1 kg (203 lb) 06/23/2018 9:17 AM VAUDEVILLE ACTOR Height 172.7 cm (5' 8 ) 06/23/2018 9:17 AM VAUDEVILLE ACTOR Body Mass Index 30.87 06/23/2018 9:17 AM VAUDEVILLE ACTOR Plan of Treatment Not on file Insurance [facility] MEDICAID [facility] Advance Directives For more information, please contact: [phone] * Full Code (Latest Code Status on File) Date Activated Date Inactivated Comments 05/15/2018 8:05 AM 05/15/2018 12:16 PM Care Teams Circular Saw Filer Relationship Specialty Start Date End Date Neida Ruggiero PA PCP - General 08/31/16
--- OUTSIDE RECORDS SUMMARY | 2024-10-19 00:24 | XMS_ITS | Clinical Summary ---
Author Organization [facility] Address [address] [place] [address] Care Team Providers Care Certified Activities Director Name Role Phone Neida Vyas Primary Care Pr ovider Source Comments [facility],non-owned Affiliates and Associated Physician Practices is amultiple site organization consisting of ambulatory clinics and hospital sitesin [place], [place]. This disclosure is being madepursuant to the Care Everywhere program and may not contain all information available regarding this patient. 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
--- OUTSIDE RECORDS SUMMARY | 2024-10-19 00:25 | XMS_ITS | Continuity of Care Document ---
Author Organization [facility] Address [address] [place] [address] [address] [place] [address] Phone Care Team Providers Care Furniture And Bedding Inspector Name Role Phone Rachel Ni Unavailable Unavailable Procedures Procedure Date Remove Foreign Body From Eye Advance Directives Directive Yes / No Effective Date File Name No Information Encounters Encounter Description Practice Location Reason(s) For Visit Diagnoses Date Provider Providers Copied on Encounter [facility], [address] [place] [address] [address], [place], [place], [id number], [place] tel:[phone] No Information [phone] Raine Ramos. [address] [address] , [address], [place], [address], [place]. tel:[phone] Family History Family Member Type Diagnosis Age At Onset No Information Payers Payer name Insurance type Covered republican ID Authoriza tion(s) No Information Social History [...]
--- OUTSIDE RECORDS SUMMARY | 2024-10-19 00:25 | XMS_ITS | Data Portability ---
Author Organization [place] - [facility] [employer], Main Office Address [address] [place] [address] Assessment No assessment recorded. Plan of Treatment Reminders Order Date Submit Date Provider Last Modified By Organization Details Last Modified Time Details Appointments None recorded. Lab lipid panel, serum [address] - Outpatient Lab, [address] [place], [address], 3 12:10:19 CBC w/ auto diff 2022 023 [facility] - Outpatient Lab, [address] [place], [address], 3 12:14:21 CMP, serum or plasma [address] - Outpatient Lab, [address] [place], [address], 3 12:10:10 T4, free, serum 2022 023 [facility] ([facility]), [address] [place], [address], 3 12:38:20 TSH, serum or plasma 2022 023 [facility] ([facility]), [address] [place], [address], 3 12:52:38 T4, free, serum 2022 023 [facility] ([facility]), [address] [place], [address], 3 16:12:09 TSH, serum or plasma 2022 023 [facility] ([facility]), [address] [place], [address], 3 16:39:18 T3, free, serum or plasma 2022 023 [facility] ([facility]), [address] [place], [address], 3 16:12:25 tsi (thyroid-st imulating immunoglobu izaiah), serum 2022 023 [facility] ([facility]), [address] [place], [address], 3 07:12:16 CMP, serum or plasma 2022 023 [facility] ([facility]), [address] [place], [address], 3 16:02:10 thyroid peroxidase (tpo) Ab, serum 2022 023 [facility] ([facility]), [address] [place], [address], 3 10:12:49 TSH + free T4, serum 2022 023 [email or web address] [facility] - Outpatient Lab, [address] [place], [address], 3 08:39:06 T3, free, serum or plasma 2022 023 [email or web address] [facility] - Outpatient Lab, [address] [place], [address], 3 08:43:08 tsi (thyroid-st imulating immunoglobu izaiah), serum [address] Outpatient Lab, [address] [place], [address], 3 12:19:04 thyroid peroxidase (tpo) Ab, serum [address] Outpatient Lab, [address] [place], [address], 3 12:19:12 thyroglobul in Ab, serum 2022 023 [facility] Outpatient Lab, [address] [place], [address], 3 10:47:01 urinalysis, complete [address] Outpatient Lab, [address] [place], [address], 3 17:31:08 CMP, serum or plasma [address] Outpatient Lab, [address] [place], [address], 3 17:31:22 lipid panel, serum [address] Outpatient Lab, [address] [place], [address], 3 17:31:30 CBC w/ auto diff [address] Outpatient Lab, [address] [place], [address], 3 17:30:56 PSA, serum or plasma [address] Outpatient Lab, [address] [place], [address], 3 17:31:56 HbA1c (hemoglobin A1c), blood 2022 023 [email or web address] [facility] - Outpatient Lab, [address] [place], [address], 3 17:31:41 Referral None recorded. Procedures None recorded. Surgeries None recorded. Imaging CT, abdomen + pelvis, w/ contrast 2022 023 [facility] (Imaging), [address] [place], [address], 3 10:12:43 Medication Orders methimazole 5 mg tablet 2022 023 [facility] [facility] [id number] [facility], [address] [place], [address], 3 09:36:08 methimazole 10 mg tablet 2022 023 [place] [address] [facility] [address] In [facility], [address] [place], [address], 3 09:17:54 loratadine 10 mg tablet 2022 023 [place] [facility] [address] In [facility], [address] [place], [address], 3 11:04:02 Patient TargetsNo targets recorded. Patient InstructionsNo instructions recorded. Reason for Referral None Reported. Results Created Date Observation Date Name Description Value Unit Range Abnormal Flag Note LastModifiedBy Organization Detail LastModifiedTime 01/15/2001/14/2023 COMPR EHENS INEZ METAB OLIC PANEL sodium 139 mmol/ L 137-14 5 Not Available [facility] (Lab) [address] [place], [address], 01/14/2023 16:02:10 01/15/20 23 01/14/2023 COMPR EHENS INEZ METAB OLIC PANEL potassium 3.8 mmol/ L 3.5-5. 1 Not Available [facility] (Lab) [address] [place], [address], 01/14/2023 16:02:10 01/15/20 23 01/14/2023 COMPR EHENS INEZ METAB OLIC PANEL chloride 106 mmol/ L 98-107 Not Available [facility] (Lab) [address] [place], [address], 01/14/2023 16:02:10 01/15/20 23 01/14/2023 COMPR EHENS INEZ METAB OLIC PANEL carbon dioxide 25 mmol/ L 22-30 Not Available [facility] (Lab) [address] [place], [address], 01/14/2023 16:02:10 01/15/20 23 01/14/2023 COMPR EHENS INEZ METAB OLIC PANEL anion gap 11.8 mmol/ L 14-22 low Not Available [facility] (Lab) [address] [place], [address], 01/14/2023 16:02:10 01/15/20 23 01/14/2023 COMPR EHENS INEZ METAB OLIC PANEL glucose 101 mg/dL 70-99 high Not Available [facility] (Lab) [address] [place], [address], 01/14/2023 16:02:10 01/15/20 23 01/14/2023 COMPR EHENS INEZ METAB OLIC PANEL BUN 15 mg/dL 8-19 Not Available [facility] (Lab) [address] [place], [address], 01/14/2023 16:02:10 01/15/20 23 01/14/2023 COMPR EHENS INEZ METAB OLIC PANEL creatinine 0.78 mg/dL 0.66-1 .25 Not Available [facility] (Lab) [address] [place], [address], 01/14/2023 16:02:10 01/15/20 23 01/14/2023 COMPR EHENS INEZ METAB OLIC PANEL GFR >60 Refer ence Range : [place] ge GFR Healt hy Adult : >60 [...] calcu lator is avail able on the [facility] websi te: [email or web address] :[email or web address] [email or web address].simba [email or web address] ional s/kdo qi/gf r_cal culat or Not Available [facility] (Lab) [address] [place], [address], 01/14/2023 16:02:10 01/15/20 23 01/14/2023 COMPR EHENS INEZ METAB OLIC PANEL alkaline phosphatase 143 U/L 38-126 high Not Available [facility] (Lab) [address] [place], [address], 01/14/2023 16:02:10 01/15/20 23 01/14/2023 COMPR EHENS INEZ METAB OLIC PANEL alanine aminotransfe rase 32 U/L 0-50 Not Available [facility] (Lab) [address] [place], [address], 01/14/2023 16:02:10 01/15/20 23 01/14/2023 COMPR EHENS INEZ METAB OLIC PANEL aspartate aminotransfe rase 32 U/L 15-46 Not Available [facility] (Lab) [address] [place], [address], 01/14/2023 16:02:10 01/15/20 23 01/14/2023 COMPR EHENS INEZ METAB OLIC PANEL bilirubin, total 0.30 mg/dL 0.20-1 .30 Not Available [facility] (Lab) [address] [place], [address], 01/14/2023 16:02:10 01/15/20 23 01/14/2023 COMPR EHENS INEZ METAB OLIC PANEL calcium 9.2 mg/dL 8.4-10 .2 Not Available [facility] (Lab) [address] [place], [address], 01/14/2023 16:02:10 01/15/20 23 01/14/2023 COMPR EHENS INEZ METAB OLIC PANEL total protein 7.6 g/dL 6.3-8. 2 Not Available [facility] (Lab) [address] [place], [address], 01/14/2023 16:02:10 01/15/20 23 01/14/2023 COMPR EHENS INEZ METAB OLIC PANEL albumin 4.5 g/dL 3.4-5. 0 Not Available [facility] (Lab) [address] [place], [address], 01/14/2023 16:02:10 01/15/20 23 01/14/2023 COMPR EHENS INEZ METAB OLIC PANEL globulin 3.1 g/dL 2.6-4. 2 Not Available [facility] (Lab) [address] [place], [address], 01/14/2023 16:02:10 01/15/20 01/14/2023 COMPR EHENS INEZ METAB OLIC PANEL A/G ratio 1.5 ratio 1.0-2. 0 Not Available [facility] (Lab) [address] [place], [address], 01/14/2023 16:02:10 01/15/20 23 01/14/2023 T4 FREE free T4 1.27 NG/dL 0.78-2 .19 Not Available [facility] (Lab) [address] [place], [address], 01/14/2023 16:12:09 01/15/20 23 01/14/2023 T3 FREE free T3 6.2 pg/mL 2.77-5 .27 high Not Available [facility] (Lab) [address] [place], [address], 01/14/2023 16:12:25 01/15/20 23 01/14/2023 TSH thyroid-stim ulating hormone <0.015 uIU/m L 0.465- 4.680 low Not Available [facility] (Lab) [address] [place], [address], 01/14/2023 16:39:18 01/15/20 23 01/15/2023 THYRO ID PEROX IDASE (TPO) AB thyroid peroxidase (tpo) Ab 503 IU/mL 0-34 high Perfo rmed at: [facility] [address] [place] [address] Lab Direc tor: Scott baker PhD, Phone : [phone] Not Available [facility] (Lab) [address] [place], [address], 01/15/2023 10:12:49 01/15/20 23 01/17/2023 THYRO ID STIM IMMUN OGLOB ULIN thyroid stim immunoglobul in 3.86 IU/L 0.00-0 .55 high Perfo rmed at: [facility] - [facility] Marianna montanez [address] [place] [address] [place] [address] Lab Direc tor: Daniella benítez MD, Phone : [phone] Not Available [facility] (Lab) [address] [place], [address], 01/17/2023 07:12:16 02/22/20 23 02/21/2023 COMPR EHENS INEZ METAB OLIC PANEL sodium 139 mmol/ L 137-14 5 Not Available [facility] (Lab) [address] [place], [address], 02/21/2023 10:58:16 02/22/20 23 02/21/2023 COMPR EHENS INEZ METAB OLIC PANEL potassium 3.9 mmol/ L 3.5-5. 1 Not Available [facility] (Lab) [address] [place], [address], 02/21/2023 10:58:16 02/22/20 23 02/21/2023 COMPR EHENS INEZ METAB OLIC PANEL chloride 105 mmol/ L 98-107 Not Available [facility] (Lab) [address] [place], [address], 02/21/2023 10:58:16 02/22/20 23 02/21/2023 COMPR EHENS INEZ METAB OLIC PANEL carbon dioxide 24 mmol/ L 22-30 Not Available [facility] (Lab) [address] [place], [address], 02/21/2023 10:58:16 02/22/20 23 02/21/2023 COMPR EHENS INEZ METAB OLIC PANEL anion gap 13.9 mmol/ L 14-22 low Not Available [facility] (Lab) [address] [place], [address], 02/21/2023 10:58:16 02/22/20 23 02/21/2023 COMPR EHENS INEZ METAB OLIC PANEL glucose 108 mg/dL 70-99 high Not Available [facility] (Lab) [address] [place], [address], 02/21/2023 10:58:16 02/22/20 23 02/21/2023 COMPR EHENS INEZ METAB OLIC PANEL BUN 18 mg/dL 8-19 Not Available [facility] (Lab) [address] [place], [address], 02/21/2023 10:58:16 02/22/20 23 02/21/2023 COMPR EHENS INEZ METAB OLIC PANEL creatinine 0.96 mg/dL 0.66-1 .25 Not Available [facility] (Lab) [address], [place], [address], 02/21/2023 10:58:16 02/22/20 23 02/21/2023 COMPR EHENS INEZ METAB OLIC PANEL GFR >60 Refer ence Range : [place] ge GFR Healt hy Adult : >60 [...] or ethni c subgr oups, such as [facility] nics. Outsi de the valid ated [...] s/kdo qi/gf r_cal culat or Not Available [facility] (Lab) [address] [facility] [place], [address], 02/21/2023 10:58:16 02/22/20 23 02/21/2023 COMPR EHENS INEZ METAB OLIC PANEL alkaline phosphatase 126 U/L 38-126 Not Available [facility] (Lab) [address] [place], [address], 02/21/2023 10:58:16 02/22/20 23 02/21/2023 COMPR EHENS INEZ METAB OLIC PANEL alanine aminotransfe rase 27 U/L 0-50 Not Available [facility] (Lab) [address] [place], [address], 02/21/2023 10:58:16 02/22/20 23 02/21/2023 COMPR EHENS INEZ METAB OLIC PANEL aspartate aminotransfe rase 30 U/L 15-46 Not Available [facility] (Lab) [address] [place], [address], 02/21/2023 10:58:16 02/22/2002/21/2023 COMPR EHENS INEZ METAB OLIC PANEL bilirubin, total 0.80 mg/dL 0.20-1 .30 Not Available [facility] (Lab) [address] [place], [address], 02/21/2023 10:58:16 02/22/2002/21/2023 COMPR EHENS INEZ METAB OLIC PANEL calcium 9.4 mg/dL 8.4-10 .2 Not Available [facility] (Lab) [address] [place], [address], 02/21/2023 10:58:16 02/22/20 23 02/21/2023 COMPR EHENS INEZ METAB OLIC PANEL total protein 8.2 g/dL 6.3-8. 2 Not Available [facility] (Lab) [address] [place], [address], 02/21/2023 10:58:16 02/22/20 23 02/21/2023 COMPR EHENS INEZ METAB OLIC PANEL albumin 4.8 g/dL 3.4-5. 0 Not Available [facility] (Lab) [address] [place], [address], 02/21/2023 10:58:16 02/22/20 23 02/21/2023 COMPR EHENS INEZ METAB OLIC PANEL globulin 3.4 g/dL 2.6-4. 2 Not Available [facility] (Lab) [address] [facility], [address], 02/21/2023 10:58:16 02/22/20 23 02/21/2023 COMPR EHENS INEZ METAB OLIC PANEL A/G ratio 1.4 ratio 1.0-2. 0 Not Available [facility] (Lab) [address] [place], [address], 02/21/2023 10:58:16 02/22/20 23 02/21/2023 T4 FREE free T4 0.60 NG/dL 0.78-2 .19 low Not Available [facility] (Lab) [address] [place], [address], 02/21/2023 11:14:32 02/22/2002/21/2023 T3 FREE free T3 3.0 pg/mL 2.77-5 .27 Not Available [facility] (Lab) [address] [place], [address], 02/21/2023 11:14:39 02/22/2002/21/2023 TSH thyroid-stim ulating hormone 1.360 uIU/m L 0.465- 4.680 Not Available [facility] (Lab) [address] [place], [address], 02/21/2023 11:28:30 02/22/20 23 02/22/2023 THYRO ID PEROX IDASE (TPO) AB thyroid peroxidase (tpo) Ab 495 IU/mL 0-34 high Perfo rmed at: - [facility] [address] [place] [address] Lab Direc tor: Scott baker PhD, Phone : [phone] Not Available [facility] (Lab) [address] [place], [address], 02/22/2023 09:13:46 02/22/20 23 02/24/2023 THYRO ID STIM IMMUN OGLOB ULIN thyroid stim immunoglobul in 4.09 IU/L 0.00-0 .55 high Perfo rmed at: - [facility] [id number] [place] [address] Lab Direc tor: Daniella benítez MD, Phone : [phone] Not Available [facility] (Lab) [address] [place], [address], 02/24/2023 11:08:19 03/13/20 23 03/13/2023 T4 FREE free T4 0.62 NG/dL 0.78-2 .19 low Not Available [facility] (Lab) [address] [place], [address], 03/13/2023 12:38:20 03/13/20 23 03/13/2023 TSH thyroid-stim ulating hormone 4.060 uIU/m L 0.465- 4.680 Not Available [facility] (Lab) [address] [place], [address], 03/13/2023 12:52:37 10/11/1909/11/2022 CT, abdom en + pelvi s, w/ contr ast No observ ation record ed. [email or web address] [facility] [address] [place], [address], 10/10/2022 14:47:29 10/12/19 23 09/11/2022 US, scrot um No observ ation record ed. [email or web address] [facility] [address] [place], [address], 10/11/2022 15:45:23 10/17/19 23 10/16/2022 CT, abdom en + pelvi s, w/ contr ast No observ ation record ed. [email or web address] [facility] [address] [place], [address], 10/17/2022 14:15:07 Result Notes None recorded. Problems Name Problem SNOMED Code Status Onset Date Resolution Date Notes Provider Name and Address Organization Details Recorded Time Benign essential hypertensi on 1787731 Active 2021 Not Available [facility] 3 15:16:57 Abnormal testostero ne 177168598 Active 2021 Not Available [facility] 3 15:16:57 Acute sinusitis 98511112 Active 2021 Not Available [facility] 3 15:16:57 Diabetes mellitus screening Active 2021 [facility] Available [facility] 3 15:16:57 Gastroesop hageal reflux disease 188811967 Active 2021 Not Available [facility] 3 15:16:57 Long-term drug therapy Active 2021 Not Available [facility] 3 15:16:57 Cholestero l screening Active 2021 Not Available [facility] 3 15:16:58 Thyroid function tests abnormal 631476252 Active 2021 Not Available [facility] 3 15:16:58 Hyperthyro idism 54704029 Active 2021 LUIS CARLOS Val[place], [place] - [place] [employer] [facility] 3 11:26:53 Pain of left knee joint 9792866196187 07 Active 2021 Not Available [facility] 3 15:16:58 Gynecomast ia 8726402 Active 2021 Not Available [facility] 3 15:16:58 Long-term current use of testostero ne replacemen t therapy 0842975634057 1 Active 2021 Not Available [facility] 3 15:16:58 Upper respirator y infection 03642554 Active 2021 Not Available [facility] 3 15:16:58 Kidney stone 28899410 Active 2022 DICKSON Wu [address], [place], [address] , [employer] 3 11:01:09 Mesenteric lymphadeno cedric 075950182 Active 2022 DICKSON Wu [address], [place], [address] , [employer] 3 11:01:27 Seasonal allergic rhinitis 513807102 Active 2022 DICKSON Wu [address], [place], [address] , [employer] 3 11:03:47 Gastroesop hageal reflux disease without esophagiti s 221863520 Active 2022 DICKSON Wu [address], [place], [address] , [employer] 3 21:39:55 Problem Notes None recorded. Procedures Surgical History Date Name Laterality Status Provider Name and Address Organization Details Recorded Time 01/09/20 22 Knee completed LUIS CARLOS Valera [employer] [facility] 10/09/2022 10:33:14 05/15/20 18 Colonoscopy completed Not Available [facility] 08/09/19 15:14:17 Orthopedic Surgery completed Not Available [facility] 08/08/2022 15:14:17 Lung Surgery completed Not Available [facility] 08/08/2022 15:14:17 Orthopedic Surgery completed Not Available [facility] 08/08/2022 15:14:17 Lung Surgery completed Not Available [facility] 08/08/2022 15:14:17 Orthopedic Surgery completed Not Available [facility] 08/08/2022 15:14:17 Imaging Results Imaging Date Name Status LastModified by Organiz ation Details LastModified Time 09/11/2022 CT, abdomen + pelvis, w/ contrast completed [email or web address] [facility] [address] [place], [address], 10/10/2022 14:47:29 09/11/2022 US, scrotum completed [facility] [address] [place], [address], 10/11/2022 15:45:23 10/16/2022 CT, abdomen + pelvis, w/ contrast completed [email or web address] [facility] [address] [place], [address], 10/17/2022 14:15:07 Procedure Notes None recorded. Medical [...] % 98 % 73 /min 98 [degF] 66149.6 1 g 125 mm[Hg] 85 mm[Hg] Not Available [facility] 3 15:14:44 Date Recorded Body height Body temperature Body mass index (BMI) Body weight Respiratory rate Oxygen saturation Oxygen saturation in Arterial blood by Pulse oximetry Heart rate Systolic blood pressure Diastolic blood pressure Provider Name and Address Organization Details Last Updated DateTime 3 172.72 cm 97.6 [degF] 30 kg/m2 32491.7 g 16 /min 97 % 97 % 101 /min 130 mm[Hg] 82 mm[Hg] LUIS CARLOS Val[place] - [facility] [place] [employer] 3 10:33:54 Date Recorded Body height Body mass index (BMI) Body weight Body temperature Respiratory rate Heart rate Systolic blood pressure Diastolic blood pressure Provider Name and Address Organization Details Last Updated DateTime 3 172.72 cm 30.5 kg/m2 69401.3 5 g 97.8 [degF] 12 /min 65 /min 159 mm[Hg] 94 mm[Hg] Tamela Olivas RN [facility] [employer] [facility] 3 14:10:06 Date Recorded Body height Body mass index (BMI) Body weight Body temperature Respiratory rate Heart rate Systolic blood pressure Diastolic blood pressure Provider Name and Address Organization Details Last Updated DateTime 3 172.72 cm 32 kg/m2 23912.8 3 g 97.8 [degF] 12 /min 60 /min 159 mm[Hg] 105 mm[Hg] Tamela Olivas RN [facility] [employer] [facility] 3 09:11:36 Date Recorded Body height Body mass index (BMI) Body weight Body temperature Heart rate Oxygen saturation Oxygen saturation in Arterial blood by Pulse oximetry Systolic blood pressure Diastolic blood pressure Provider Name and Address Organization Details Last Updated DateTime 3 172.72 cm 31.6 kg/m2 55617.2 1 g 97.4 [degF] 67 /min 98 % 98 % 142 mm[Hg] 90 mm[Hg] Digna Paul RN [facility] [employer] [facility] 3 09:19:01 Social History Question Answer Notes LastModified by Organizat ion Details LastModified Time Tobacco Smoking Status Former Smoker <1-5 years since last cigarette Not Available [facility] 08/08/2022 15:13:48 What Is Your Level Of Caffeine Consumption? Heavy Coffee And Soda >32oz A Day [id number] Information not available 08/08/2022 How Much Tobacco Do You Chew? None [id number] Information not available 08/08/2022 In The 14 Days Before Symptom Onset, Have You Had Close Contact With A Laboratory-confir med COVID-19 While That Case Was Ill? No [id number] Information not available 08/08/2022 In The 14 Days Before Symptom Onset, Have You Had Close Contact With A Person Who Is Under Investigation For COVID-19 While That Person Was Ill? No [id number] Information not available 08/08/2022 What Type Of Diet Are You Following? REGULAR [id number] Information not available 08/08/2022 Which Illicit Or Recreational Drugs Have You Used? None [id number] Information not available 08/08/2022 Have There Been Any Changes To Your Family Or Social Situation? No [id number] Information not available 08/08/2022 Do You Use Insect Repellent Routinely? No [id number] Information not available 08/08/2022 What Was The Date Of Your Most Recent Tobacco Screening? 09/12/2020 [id number] Information not available 08/08/2022 What Is Your Relationship Status? Single [id number].54966 58524 Information not available 08/08/2022 Do You Use Your Seat Belt Or Car Seat Routinely? Yes [id number].74575 [id number] Information not available 08/08/2022 Do You Have Smoke And Carbon Monoxide Detectors In Your Home? Yes [id number].24904 [id number] Information not available 08/08/2022 How Much Tobacco Do You Smoke? 1 PPD MIGRATION.82869 01987 Information not available 08/08/2022 Do You Use Sunscreen Routinely? Yes [id number].[id number] Information not available 08/08/2022 Have You Recently Traveled Abroad? No [id number] Information not available 08/08/2022 Do You Have Any Dietary Restrictions? No MIGRATION.94744 [id number] Information not available 08/08/2022 Sex: Unknown Functional Status Question Answer Note LastModified by Organizat ion Details LastModified Time Do you use any illicit or recreational drugs? No [id number].88827 [id number] Information not available 08/08/2022 Do you or have you ever used any other forms of tobacco or nicotine? No MIGRATION.42505 [id number] Information not available 08/08/2022 What is your level of alcohol consumption? Moderate Beer [id number].79636 [id number] Information not available 08/08/2022 Do you or have you ever used smokeless tobacco? Former smokeless tobacco user MIGRATION.67175 84801 Information not available 08/08/2022 Are you currently employed? 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 Never used electronic cigarettes MIGRATION.85076 06330 Information not available 08/08/2022 What is your exercise level? Moderate MIGRATION.84785 11625 Information not available 08/08/2022 Mental Status None recorded. Family History Relationship Description Onset Age of this Age Resolved Age Notes LastModified by Organization Details LastModified Time Father Malignant neoplastic disease [id number] Not available 08/08/2022 15:14:17 Medical History Condition Response MRSA Y SKIN PROBLEMS Y DIABETES, TYPE N ALLERGIES/HAYFEVER N OTHER # 1 N PARATHYROID DISEASE N ENT N SEASONAL ALLERGIES N LUNG DISEASE/DISORDER Y INSOMNIA N HEARTBURN / REFLUX Y RADIATION / CHEMOTHERAPY N COPD N Other # 2 N HYPERTHYROIDISM Y NEUROLOGICAL PROBLEMS N BLOOD DISEASES N EAR OR HEARING PROBLEMS N HYPOTHYROIDISM N DEPRESSION (INCLUDING POST ) Y BOWEL PROBLEMS Y HAVE YOU BEEN HOSPITALIZED OR SEEN IN [facility] ER IN THE PAST YEAR ? N SEIZURES/EPILEPSY N HEADACHES/MIGRAINES N CHF N PACEMAKER N DIZZINESS N HEART DISEASE/HEART PROBLEMS N AIDS/HIV N FRACTURES N HYPERTENSION Y CARDIAC ARRHYTHMIA Y CANCER: SPECIFY N OBESITY N ANXIETY DISORDER Y BLOOD TRANSFUSION N GERD/NAUSEA Y ANESTHESIA COMPLICATIONS N ANEMIA/BLOOD DISORDER N HISTORY WITH COMPLICATIONS WITH ANESTHES IA ? N CHRONIC EAR INFECTIONS N ANEURYSM N Past Encounters Encounter ID Performer Location Encounter Start Date Encounter Closed Date Diagnosis/Indication Diagnosis SNOMED-CT Code Diagnosis ICD10 Code Diagnosis Note [id number] DICKSON Wu [facility] [place] [address] [address], [address] [place] [address] 09/12/2020 00:00:00 10/05/2020 20:07:09 [id number] Chacho Teague MD [facility] [place] [place] [address] [address] 09/22/2020 00:00:00 09/22/2020 15:55:38 [id number] DICKSON Wu [facility] [place] [address] [address], [address] [place] [address] 07/11/2021 00:00:00 08/07/2021 20:27:29 [id number] [facility] [place] [address] [address] 10/02/2021 00:00:00 10/02/2021 20:10:17 [id number] Trenton Gee MD [facility] Internal [facility] [place] [address] [place] [address] 11/09/2021 00:00:00 12/07/2021 21:59:40 [id number] [facility] [place] [address] [place] [address] 11/24/2021 00:00:00 11/24/2021 15:06:27 [id number] [facility] [place] [address] [place] [address] 01/09/2022 00:00:00 01/09/2022 12:03:44 [id number] DICKSON Wu [facility] Internal [facility] [place] [address] [place] [address] 10/09/2022 10:25:52 10/09/2022 11:08:07 Gastroesophageal reflux disease without esophagitis 281310074 K21.9 stable on PPI therapy. Benign ess ential hypertension 1178333 I10 stable on metoprolol and losartan. Kidney stone 54198488 N2 0.0 recent renal stone. screening cmp and UA Mesenteric lymphadenopathy 179149728 I88.0 hx of mesenteric lymphadeno cedric noted on ER scan. This requires f/u scan and lab Cholesterol screening 27 1692667 Z13.220 fasting lipids due. Diabetes m ellitus screening 594215935 Z13.1 screening diabetes due Hyperthyroidism 60421803 E05.90 Pt must f/u with endocrine. this is an ongoing issue. he's not been taking methimazol e in some months. due for TFTs and Thyroid abs. Screening for malignant neoplasm of prostate 810154957 Z12.5 PSA screening due. Seasonal a llergic rhinitis 919045332 J30.2 start loratidine 10mg daily for allergies. [id number] Chantale Savage MD [facility] [place] [address] [place] [address] 01/14/2023 14:01:43 01/14/2023 14:28:06 Hyperthyroidism 63149786 E05.90 Patient was off methimazol e when [...] if thyroid antibodies are elevated will discuss emt intermediate curative treatment at return visit. Patient advised [...] answered and refills necessary at visit today. [id number] Chantale Savage MD [facility] [place] [address] [place] [address] 02/25/2023 09:03:44 02/25/2023 09:39:27 Hyperthyroidism 51861043 E05.90 FT4 low range with normalized TSH [...] answered and refills necessary at visit today. [id number] DICKSON Wu [facility] Internal [facility] [place] [address] [place] [address] 03/26/2023 09:13:33 03/26/2023 09:46:05 Long-term drug therapy 898269432 Z79.899 CBC and CMP due. Cholesterol screening 27 3725769 Z13.220 fasting lipids due. Benign ess ential hypertension 5007330 I10 stable on metoprolol and losartan. Gastroesop hageal reflux disease 087228161 K21.9 stable on PPI therapy Hyperthyroidism 60914937 E05.90 pt is scheduled with new Endocrine already and on methimazol e still. Health Concerns Section Related Observation LastModified by Organization Detai ls LastModified Time None Recorded Concern Status LastModified by Organization Details LastModified Time None Recorded Advance Directives Directive None Recorded Payers Encounter Date Sequence Insurance Name Policy Number Policy Smart Covered Member ID Smart Member ID Guarantor Name 10/09/2022 1 [place] [facility] [address] Denny Drake [place] [id number] Denny Drake [place] 01/14/2023 1 [facility] (MEDICAID HMO) [id number] Denny Drake [place] [id number] Denny Drake [place] 02/25/2023 1 [facility] (MEDICAID HMO) [id number] Denny Drake [place] [id number] Denny Drake [place] 03/26/2023 1 [facility] (MEDICAID HMO) [id number] Denny Drake [place] [id number] Denny Drake [place] Notes Date Note Type Note Provider Name [...] fatigue; no throat pain DICKSON Wu [address] [facility] [address], [place], [address], [facility] [employer] [facility] 11/06/2022 21:40:45 01/15/20 23 text/ht ml 42 [...] of 2.96 ng/dL Chantale Savage MD [address] [facility], [place], [address], [facility] [employer] [facility] 01/14/2023 16:32:59 02/26/20 23 text/ht ml 42 [...] mgd/LCr normalLFT normal Chantale Savage MD [address] [address], [place], [address], [facility] [employer] [facility] 02/25/2023 09:54:49 03/26/20 23 text/ht ml HypertensionReported [...] no throat pain DICKSON Wu [address] [address], [place], [address], [facility] [employer] [facility] [employer] [facility] 04/07/2023 21:54:43
[2024-10-19 12:30] VITALS: BP 145/94; PULSE 67; RESP 16; TEMP 36.6; O2SAT 98; BMI 31.3
[2024-10-19] MEDS: LACTATED RINGERS 1,000 ML 30 ML IV CONT (12:45)
[2024-10-19] MEDS: SCOPOLAMINE 1 MG PATCH 1 PATCH TRANSDERM (13:50)
--- NOTE | 2024-10-19 13:53 | P.PNAN_ITS ---
Anes - Initial Pre Proc Eval Procedure: Operation Date: 10/19/24 14:00 Proposed Procedures p Left Extracorporeal Shock Wave Lithotripsy - Carson Pineda MD Date/Time: 10/19/24 13:53 Surgeon: Carson Pineda MD Pre Op Diagnosis: left ureteral stone Patient Data Age: 44 Gender: M Height: 1.73 m Weight: 95.5 kg Allergies Allergy/AdvReac Type Severity Reaction Status Date / Time No Known Allergies Allergy Unknown Verified 10/16/24 09:40 Home Medications ?Medication ?Instructions ?Recorded ?Confirmed ?Type lorazepam 1 mg tablet 1 mg PO BID PRN anxiety 03/14/23 10/16/24 History losartan 50 mg tablet 50 mg PO DAILY 03/14/23 10/16/24 History metoprolol succinate 25 mg 25 mg PO DAILY 03/14/23 10/16/24 History tablet,extended release 24 hr omeprazole 40 mg capsule,delayed 40 mg PO DAILY 03/14/23 10/16/24 History release valacyclovir 500 mg tablet 500 mg PO DAILY 03/14/23 10/16/24 History methimazole 10 mg tablet 10 mg PO DAILY #90 tabs 05/09/23 10/16/24 Rx Patient hx anesthesia problems: none Family hx anesthesia problems: none Results Review: All pre-operative results and documents have been reviewed as part of the pre- operative evaluation. [facility] Surgical History Surgical History History of hip surgery History of ankle surgery History of knee surgery Family History Family History Mother Patient's mother is in good health Father Patient's father is in good health Sibling Patient's sister is in good health Social History Social History (Updated 03/14/23 @ 10:18 by Sami Tatum CMA) Smoking packs per day: 1.75 Smoking cigarettes per day: 35.0 Years smoked: 21 Smoking pack-years: 36.75 Smoking status: Former smoker Tobacco type: cigarettes Smoking end date: 10/16/12 Alcohol intake: current Substance use: never Living arrangements: with family Spiritual care concerns: No Anes - Eval Final PreProcedure Day of Procedure 10/19/24 13:53 Patient weight: obese Heart: regular rate and rhythm Lungs: decreased breath sounds Airway: Mallampati scale class II Neurological: alert and oriented Last oral intake: >/= 8 hours ASA classification: III Emergent: no Anesthetic plan: proceed Anesthesia type and monitoring: general LMA and standard monitoring Results Review: All pre-operative results and documents have been reviewed as part of the pre- operative evaluation. Informed Consent: The patient's anesthetic plan and its attendant risks and benefits were discussed with the patient/family/POA. Questions were solicited and answers provided to the satisfaction of the patient/family/POA.
--- NOTE | 2024-10-19 13:58 | WPDHPUPDATE1 ---
History and Physical Update Update Date/Time: 10/19/24 13:58 History and Physical has been reviewed, including an updated exam of the patient. There are NO changes in the patient's condition. Risks, benefits, and alternatives have been discussed and questions answered. Patient agrees to proceed with procedure.
[2024-10-19] MEDS: ceFAZolin 2 GM/D5W 50 ML 2 GM/50 ML BAG IVPB (14:00)
--- NOTE | 2024-10-19 14:17 | W.PM.PROC2 ---
Procedure Note - Detailed Date of Procedure 10/19/24 Pre-op Diagnosis Left ureteral stone Post-op Diagnosis Same Procedure Performed Left ESWL Surgeon Carson Pineda MD Anesthesia General Description of Procedure The patient was brought to the operative suite where he was placed in the supine position on the [place]orn[place] lithotripsy table. The focal point of the lithotripter was placed at a 5x8mm left proximal ureteral calculus. A total of 3000 shocks were delivered at a power setting of 4. There appeared to be good fragmentation of the stone. The patient tolerated the procedure well and was taken to the recovery room in good condition.
[2024-10-19 14:47] VITALS: BP 114/62; PULSE 57; RESP 11; TEMP 36.7; O2SAT 100
[2024-10-19 15:00] VITALS: BP 135/83; PULSE 55; RESP 14; O2SAT 100
[2024-10-19 15:15] VITALS: BP 148/78; PULSE 70; RESP 14; O2SAT 97
[2024-10-19 15:21] VITALS: BP 144/96; PULSE 70
[2024-10-19 15:51] VITALS: BP 153/95; PULSE 55
== END 2024-10-19 16:06 | disposition home or self-care (01) ==
PROVIDERS: PCP Physician Assistant; Visit Provider Urology
PROC: (CPT 50590; principal; 2024-10-19 14:00)
DX: N20.1 Calculus of ureter (principal)
CPT/HCPCS: 50590; 74018; A9270; J0690; J1100; J2250; J2270; J2405; J2704; J7120

== ENCOUNTER 2024-11-03 13:00 | Outpatient (CLI) | payer OTHER, SELFPAY ==
--- NOTE | ~2024-11-03 | XR_ITS ---
Exam: Abdomen 1V HISTORY: N20.1 - Calculus of ureter COMPARISON: Reference is made to a CT examination of the abdomen and pelvis dated 08/17/2024 TECHNIQUE: Supine images of the abdomen FINDINGS: Bowel gas pattern is non-obstructive. There is no free air or deep sulci. Calcific density is redemonstrated in the left paraspinous region. Lung bases are unremarkable. Bones and soft tissues are unremarkable. IMPRESSION: Nonspecific, nonobstructive bowel gas pattern. Calcific density within the left paraspinous region, possibly representing patient's bilobed ureteral stone. Reviewed, dictated and finalized at location A. IMPRESSION: Nonspecific, nonobstructive bowel gas pattern. Calcific density within the left paraspinous region, possibly representing brien ent's bilobed ureteral stone.
== END 2024-11-03 13:01 | disposition home or self-care (01) ==
LOC: MICIMG 13:02
PROVIDERS: PCP Physician Assistant; Visit Provider Urology
DX: M61.479 Other calcification of muscle, unspecified ankle and foot (principal); N20.1 Calculus of ureter
CPT/HCPCS: 74018